=== PATIENT | male | born 1955 | race Caucasian/White ===

== ENCOUNTER 2018-10-05 08:03 | Inpatient (IN) | payer BC, SELFPAY ==
[2018-10-05] VITALS (19 sets, daily range): BP systolic 132–151; BP diastolic 63–78; PULSE 78–96; RESP 16–22; TEMP 36.1–37; O2SAT 96–99; BMI 29.0; BMI 29.3
--- NOTE | 2018-10-05 08:08 | EKG12_ITS ---
Test Reason : ABNORMAL LABS Blood Pressure : / mmHG Vent. Rate : 092 BPM Atrial Rate : 092 BPM P-R Int : 000 ms QRS Dur : 082 ms QT Int : 352 ms P-R-T Axes : 000 -35 145 degrees QTc Int : 435 ms Normal sinus rhythm Left axis deviation ST & T wave abnormality, consider anterolateral ischemia Abnormal ECG Confirmed by MIHAI HOLLIS ([id number]), script editor KLARISSA CLARK ([id number]) on 10/08/2018 11:16:06 AM Referred By: FLORESITA Confirmed By:MIHAI HOLLIS
--- NOTE | 2018-10-05 08:28 | ED.DCSUM_ITS ---
- ER Visit Summary Date of Service: 10/05/18 Chief Complaint: Abnormal labs History of Present Illness: The patient is a 63 M who presents with abnormal labs were drawn yesterday by his primary care physician. Patient was called today and told that his potassium was elevated at 6.3. Creatinine was 12.14 and BNP was elevated over 70,000. Patient has been complaining of some shortness of breath and chest congestion. Patient denies any fevers or chills. Patient does admit to a cough but denies any sputum production. Patient denies any chest pain or palpitations. Patient does admit to some nausea and vomiting. Patient also admits to some increased swelling in his lower extremities. Physical Examination: Vital signs are stable. Patient is afebrile. Patient is in no acute distress. Oral mucosa is pink and moist. Neck is supple. Trachea is midline. There is no JVD noted. Heart was regular rate and rhythm. Lungs were diminished bilaterally. There is adequate respiratory effort noted. Abdomen is soft nontender. Rectal exam showed good sphincter tone. There is brown stool. There is no tenderness or masses noted. Extremities are intact. There is 2+ edema lower extremities bilaterally. Cranial nerves II through XII are intact. There are no focal motor or sensory deficits noted. Test Results: EKG showed sinus rhythm with a rate of 92. There is some T wave inversion in V6 which is new compared to previous EKG. CBC showed anemia with a hemoglobin of 6.4. Basic metabolic profile showed an elevated BUN of 146, elevated creatinine of 11.7. Potassium was elevated at 5.9. Chloride was elevated at 114. Troponin was slightly elevated at 0.175. BNP was greater than 5000. Chest x-ray shows a left-sided effusion with atelectasis/infiltrate. Stool was sent for occult blood. Emergency Department Course and Treatment: Patient was given a DuoNeb aerosol here. Patient was given calcium gluconate, insulin, D50, and Kayexalate. Case was discussed with the hospitalist, Dr. Valdivia. She will admit the patient to her service. She requested I contact nephrology. Case was discussed with Dr. Nieto from nephrology. She will see the patient in the hospital today. Disposition: Admit to hospital Impression: Acute on chronic kidney disease This note was generated with [employer] software. It may contain incorrect words, spelling, and punctuation that were not noted in review of the chart prior to signing ED Disposition - Plan for ED Patient: Disposition: Acute Care Hospital [facility] Diagnosis: Acute on chronic kidney failure, Hyperkalemia, Anemia Referrals: Tayo Layton MD [Primary Care Provider] -
[2018-10-05] MEDS: Ipratropium/Albuterol Sulfate 3 ML AMPUL.NEB INHALATION ×3 (08:31→19:25)
[2018-10-05 08:52] LABS: Absolute Lymphocyte Count 0.92 X10^3/ul (0.83-4.51); Basophil# 0.01 X10^3/uL; Basophil% 0.1 % (0-1); Eosinophil# 0.19 X10^3/uL; Eosinophils% 2.3 % (0-5); Hematocrit 19.5 % (40-54); Hemoglobin 6.4 g/dl (13.0-16.5); Lymphocyte # 0.92 X10^3/ul (4.0); Mean Corp Hgb Conc 32.8 g/gl (32-36); Mean Corpuscular Hgb 30.2 pg (27.0-32.0); Mean Platelet Vol. 8.7 fl (6.2-12.0); Monocyte# 0.23 X10^3/uL; Monocyte% 2.7 % (0-10); Neutrophil # 7.01 X10^3/uL (2.7-7.7); Neutrophil % 83.8 % (47-70); POSITIVE COUNT NO; POSITIVE DIFFERENTIAL NO; POSITIVE MORPHOLOGY YES; Platelet Count 208 K/mm3 (150-450); RBC Distribution Width CV 18.3 % (11.6-14.6); RBC Distribution Width SD 56.8 fl (35.1-43.9); Red Blood Count 2.12 M/mm3 (4.6-6.2); White Blood Count 8.4 K/mm3 (4.4-11.0)
[2018-10-05 08:53] LABS: Differential Indicated SCAN CRITERIA MET
--- NOTE | 2018-10-05 09:15 | ED.RN ---
CRITICAL VALUES TAKEN FROM LAB. REPORTED TO PRIMARY NURSE AND
[2018-10-05 09:16] LABS: Anion Gap 12 (5-15); BNP,B-Type NATRIURETIC PEPTIDE > 5000.0 pg/mL (0-100); BUN 146 mg/dL (7-18); BUN/Creat Ratio 12.5 RATIO (10-20); Calcium,Total 6.9 mg/dL (8.5-10.1); Chloride 114 mmol/L (98-107); EST Glomerular Filtration Rate 5 mL/min (>60); Est Glom Filt Rate - Afr Amer 6 mL/min (>60); Glucose 131 mg/dL (74-106); Potassium 5.9 mmol/L (3.5-5.1); Sodium Level 142 mmol/L (136-145)
--- NOTE | 2018-10-05 09:18 | RAD_ITS ---
STUDY: X-RAY CHEST REASON FOR EXAM: Male, 63 years old. Cold like symptoms. Elevated potassium levels. TECHNIQUE: PA and lateral views of the chest. COMPARISON: None. FINDINGS: EKG electrodes are seen. Small left pleural effusion with underlying left lower lobe infiltration and/or atelectasis. Mild increased markings at the right lung base suggestive of atelectasis. Blunting of the right costophrenic angle. There is moderate cardiac enlargement. Normal mediastinum and jules. Normal visualized pulmonary arteries. There is atherosclerotic tortuosity of the aortic arch and descending thoracic aorta. There are diffuse degenerative changes of the visualized thoracic spine. Normal visualized ribs, clavicles, and shoulders. There is no demonstrated abnormality of the visualized soft tissue structures of the upper abdomen. RAD/Chest PA and Lateral IMPRESSION: Small left pleural effusion with underlying left lower lobe infiltration and/or atelectasis. Mild increased markings at the right lung base. Cardiomegaly. Electronically Signed: Jay Jya Dwyer, at 9:34 EDT , Service support ,
--- NOTE | 2018-10-05 10:41 | PCM.HP.STD ---
Problem List (1) Acute on chronic kidney failure Status: Chronic Qualifiers: Acute renal failure type: unspecified Chronic kidney disease stage: stage 5, not on chronic dialysis Qualified Code(s): N17.9 - Acute kidney failure, unspecified; N18.5 - Chronic kidney disease, stage 5 (2) Anemia Status: Acute Qualifiers: Anemia type: unspecified type Qualified Code(s): D64.9 - Anemia, unspecified (3) Acute electrocardiogram changes Status: Acute (4) Hyperkalemia Status: Acute (5) Type II diabetes mellitus Status: Chronic Qualifiers: Diabetes mellitus assisted insulin use: without assisted use Diabetes mellitus complication status: with unspecified complications Qualified Code(s): E11.8 - Type 2 diabetes mellitus with unspecified complications (6) Hyperlipidemia Status: Chronic Qualifiers: Hyperlipidemia type: unspecified Qualified Code(s): E78.5 - Hyperlipidemia, unspecified (7) Hypertension Status: Chronic Qualifiers: Hypertension type: essential hypertension Qualified Code(s): I10 - Essential (primary) hypertension History of Present Illness Date of Admission: 10/05/18 Chief Complaint: Abnormal blood work The patient is a 63 year old M with medical history of CKD stage IV, hypertension, type II DM who last followed up with nephrology will start in 2017 comes in with abnormal blood work. Patient reportedly saw his primary care doctor's nurse practitioner, blood work was taken and later patient was called to come back into the hospital because his potassium was elevated as well as his BMP. He denied any chest pain or dizziness but admits to dyspnea on exertion as well as orthopnea but denied any PND. He noticed bilateral lower extremity edema. Denied any fever or chills. Denied any recent diarrhea. Admitted to some nausea recently. Denied any use of NSAIDs or any inciting medications. In the emergency department, his temperature was 98.1F, heart rate was 89, blood pressure is 151/77, respiratory rate is 16, SPO2 is 99% on room air. Admitting blood work showed WBC count of 8.4, hemoglobin 6.4, platelet count of 208, INR 1.3, sodium 140 142, potassium 5.9, chloride 104, bicarbonate 16, BUN 146, creatinine 11.70, HbA1c was 3.5, serum 6.9, iron profile shows a mixed picture of iron deficiency anemia as well as anemia of chronic disease. Stool for occult blood was negative. BN pep was more than 5000, Chest x-ray showed small left pleural effusion with underlying left lower lobe infiltrate/atelectasis, mild increased markings in the right lung base, cardiomegaly Past Medical History Past Medical History (Chronic Problems): Chronic Problems Acute on chronic kidney failure (Chronic) Type II diabetes mellitus (Chronic) Hyperlipidemia (Chronic) Hypertension (Chronic) Allergies No Known Allergies Allergy (Verified 10/05/18 09:07) Home Medications: Ambulatory Orders Medication Instructions Recorded Atorvastatin Calcium [Lipitor] 10 mg PO QODAY 11/12/15 Carvedilol [Coreg (Beta Rosalba)] 25 mg PO BID 11/12/15 Amlodipine Besylate 10 mg PO DAILY 10/05/18 Furosemide [Lasix] 20 mg PO DAILY 10/05/18 Sodium Bicarbonate 650 mg PO BID 10/05/18 Sodium Polystyrene Sulfonate 15 gm PO DAILY 10/05/18 [Kayexalate] Surgical History: noncontributory Psychiatric History: No pertinent psych hx Lives: Spouse/ Significant Other Smoking Status: Never smoker Tobacco Use: Non-smoker Alcohol: None Drugs: None - *Family History Maternal History Items: Diabetes Paternal History Items: Hypertension, - Review of Systems Constitutional: Reports: Weakness, Fatigue. Denies: Anorexia, Chills, Fever, Weight Change Eyes: Denies: Blurred vision, Cataracts, Conjunctivae Inflammation, Pain, Redness, Vision Change HEENT: Denies: Difficulty Hearing, Difficulty Swallowing, Head Aches, Hearing Changes, Sinus Congestion, Sinus Drainage, Sore Throat Cardiovascular: Reports: Orthopnea. Denies: Chest Pain, Claudication, Palpitations, Paroxysmal Noc. Dyspnea Respiratory: Reports: Shortness of breath at rest, Shortness of breath upon exertion. Denies: Cough, Hemoptysis, Sputum production Gastrointestinal: Denies: Abdominal Pain, Hematemesis, Hematochezia, Nausea, Vomiting Genitourinary: Denies: Dysuria, Frequency, Incontinence Musculoskeletal: Denies: Joint Pain, Joint stiffness, Joint swelling, Joint Tenderness Skin: Denies: Rash, Wounds Neurological: Denies: Difficulty swallowing, Focal weakness, Numbness, Tingling Psychiatric: Denies: Anxiety, Depression, Homicidal Ideations, Suicidal Ideations Hematologic/ Lymphatic: Denies: Easy Bruising, Easy Bleeding VTE Information - Inpt Only VTE Present on Admission: No VTE Pharm Prophylaxis ordered?: Yes Patient Problems: Active and Suspected Problems Anemia (Acute) Hyperkalemia (Acute) - Physical Exam General: Alert, Oriented x3, Cooperative, No apparent distress HEENT: Atraumatic, PERRLA, EOMI, Normocephalic Oral: Moist Mucosa Neck: Supple Lungs: Normal air movement, Diminished, - - basal crackles Cardiovascular: Regular rate, Regular Rhythm, Normal S1, Normal S2 Abdomen: Bowel Sounds Present, Soft, Non Tender, Non-Distended, No Hepato-splenomegaly Extremities: Edema - bilateral pedal +4 Skin: No rashes Musculoskeletal: No Tenderness to Palpation of Joints or Extremities Lymphatic: No Cervical, Supraclavicular, or Inguinal Adenopathy Neurological: Cranial nerves II-XII grossly intact, Neuro grossly intact Psych/Mental Status: Normal Affect, Appropriate Vital Signs Temp Pulse Resp BP Pulse Ox 98.1 F 89 22 H 151/77 H 99 10/05/18 08:04 10/05/18 08:31 10/05/18 08:31 10/05/18 08:04 10/05/18 08:04 Oxygen Delivery Method Room Air Weight: 83.915 kg Body Mass Index (BMI) 29.0 Laboratory Tests Past 24 Hrs 10/05/18 10/05/18 10/05/18 08:30 08:30 08:30 WBC 8.4 RBC 2.12 L Hgb 6.4 L Hct 19.5 L MCV 92.0 MCH 30.2 MCHC 32.8 RDW 18.3 H RDW Differential 56.8 H Plt Count 208 MPV 8.7 Immature Gran % (Auto) 0.100 Neut % (Auto) 83.8 H Lymph % (Auto) 11.0 L Rankin % (Auto) 2.7 Eos % (Auto) 2.3 Baso % (Auto) 0.1 Absolute Neuts (auto) 7.0 Absolute Lymphs (auto) 0.92 Total Counted Not Reportable Sodium 142 Potassium 5.9 H Chloride 114 H Carbon Dioxide 16.0 L Anion Gap 12 BUN 146 H* Creatinine 11.70 H* Estim Creat Clear Calc 6.20 Est GFR (MDRD) Af Amer 6 L Est GFR (MDRD) Non-Af 5 L BUN/Creatinine Ratio 12.5 Glucose 131 H Calcium 6.9 L Troponin I 0.175 H B-Natriuretic Peptide > 5000.0 H Assessment/Plan All Active Problems Anemia (Acute) Acute electrocardiogram changes (Acute) Hyperkalemia (Acute) Acute renal failure (Acute) 63 year old M with medical history of CKD stage IV, hypertension, type II DM who last followed up with nephrology will start in 2017 comes in with abnormal blood work 1. EDENILSON, ESRD now, recent stage 4 CKD, Cr in 2017 is 4.24, now with BUN/Cr 146/11.70 History of hypertension and type II DM Plan: Admit to PCU, nephrology consult, possible dialysis 2. Hyperkalemia secondary to EDENILSON, will repeat 3. Acute fluid overload secondary to EDENILSON, BNPep 5000, nephrology consulted Fluid removal planned in dialysis 4. Anemia, acute on chronic, deficiency mixed with anemia of chronic kidney disease, hemoglobin is 6.4 Will need blood transfusion, preferably during dialysis. 5. Non-gap metabolic acidosis secondary to EDENILSON, on sodium bicarbonate 6. Hypertension, controlled, on amlodipine, carvedilol, will continue to monitor 7. Type II DM, A1c less than 3.5, not on medications, will continue with Accu-Cheks with insulin sliding scale 8. DVT PPx- Heparin SC Code Visit Inpatient E&M: 44329 Init Hosp L3
[2018-10-05] MEDS: Calcium Gluconate 1 GM/10 ML Vial IV (11:05)
[2018-10-05] MEDS: Dextrose 50%-Water 25 GM/50 ML DISP.SYRIN IV (11:05)
--- NOTE | 2018-10-05 12:11 | PCM.CONS.R ---
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 His creatinine has been in the 4 range in 2017. No blood work was done as an outpatient at [facility] up until October 04. His creatinine was at 12 with BUN of 142 potassium 6.3. He complains of nausea, vomiting, anorexia for the past couple of months. Denied any cough, shortness of breath, chest pain. He has mild lower extremity edema. He denied any change in his urine output or urine stream. He denied any urinary frequency or thirst. He states that his blood sugars have been stable at home. He was prescribed calcium gluconate, Kayexalate for his hyperkalemia. We had discussed in the past about preparing for hemodialysis. However he had failed to follow-up with me in the office with last office visit in 2015. We discussed initiating hemodialysis with current admission. Patient agreed. - Allergies Allergies: Allergies No Known Allergies Allergy (Verified 10/05/18 09:07) - Past Medical History Past Medical History (Chronic Problems): Chronic Problems Acute on chronic kidney failure (Chronic) Type II diabetes mellitus (Chronic) Hyperlipidemia (Chronic) Hypertension (Chronic) - Past Surgical History Surgical History: noncontributory - Social History Marital Status: Smoking Status: Never smoker - Family History Maternal History Items: Diabetes Paternal History Items: Hypertension, - Review of Systems Constitutional: Reports: Anorexia, Weakness. Denies: Chills, Fever Eyes: Denies: Vision Change HEENT: Denies: Head Aches Cardiovascular: Reports: Edema. Denies: Chest Pain, Syncope Respiratory: Denies: Cough, Shortness of Breath Gastrointestinal: Reports: Nausea, Vomiting. Denies: Abdominal Pain, Diarrhea Genitourinary: Reports: - - no change in urine volume. Denies: Dysuria, Hesitancy, Incontinence, Retention, Urgency Musculoskeletal: Reports: Joint swelling Skin: Denies: Rash Neurological: Reports: Tremor. Denies: Balance problems, Seizures Psychiatric: Denies: Anxiety, Depression Hematologic/ Lymphatic: Denies: Hx of blood clot Patient Problems: Active and Suspected Problems Anemia (Acute) Hyperkalemia (Acute) - Physical Exam General: Alert, Oriented x3 Lungs: Rhonchi - left base Cardiovascular: Murmur Abdomen: Bowel Sounds Present, Soft, Non Tender, Non-Distended Extremities: Edema - mild Musculoskeletal: No Muscle Wasting Neurological: Cranial nerves II-XII grossly intact, - - mld tremor, asterixis Psych/Mental Status: Normal Affect, Appropriate, Alert and oriented to time, place, person, mood and affect Vital Signs Temp Pulse Resp BP Pulse Ox 98.3 F 90 18 142/70 H 98 10/05/18 11:42 10/05/18 11:42 10/05/18 11:42 10/05/18 11:42 10/05/18 11:42 Oxygen Delivery Method Room Air Weight: 85 kg Body Mass Index (BMI) 29.3 Microbiology Past 72 Hours 10/05/18 10:35 Stool Occult Blood (JOSE) - Final Stool Laboratory Tests Past 24 Hrs 10/05/18 10/05/18 10/05/18 08:30 08:30 08:30 WBC 8.4 RBC 2.12 L Hgb 6.4 L Hct 19.5 L MCV 92.0 MCH 30.2 MCHC 32.8 RDW 18.3 H RDW Differential 56.8 H Plt Count 208 MPV 8.7 Immature Gran % (Auto) 0.100 Neut % (Auto) 83.8 H Lymph % (Auto) 11.0 L Hidalgo % (Auto) 2.7 Eos % (Auto) 2.3 Baso % (Auto) 0.1 Absolute Neuts (auto) 7.0 Absolute Lymphs (auto) 0.92 Total Counted Not Reportable Sodium 142 Potassium 5.9 H Chloride 114 H Carbon Dioxide 16.0 L Anion Gap 12 BUN 146 H* Creatinine 11.70 H* Estim Creat Clear Calc 6.20 Est GFR (MDRD) Af Amer 6 L Est GFR (MDRD) Non-Af 5 L BUN/Creatinine Ratio 12.5 Glucose 131 H Calcium 6.9 L Troponin I 0.175 H B-Natriuretic Peptide > 5000.0 H Clinical Impression(s) from Imaging Studies Chest X-Ray 10/05/18 09:18 IMPRESSION: Small left pleural effusion with underlying left lower lobe infiltration and/or atelectasis. Mild increased markings at the right lung base. Cardiomegaly. Electronically Signed: Jay Jay Dwyer, at 9:34 EDT , Service support , Assessment/Plan All Active Problems Anemia (Acute) Acute electrocardiogram changes (Acute) Hyperkalemia (Acute) Acute renal failure (Acute) 1. ESRD due to diabetic nephropathy. Last seen in hospital Jun 2017, seen in the office in 2015 prior to that. Creatinine 4 range in 2017 now with BUN of 142 creatinine 12.14. Currently at end-stage renal disease with uremic symptoms. We will initiate hemodialysis with a tunneled dialysis catheter. Consult Dr. Carrasquillo for access placement. Arrange outpatient hemodialysis prior to discharge. 2. Hyperkalemia treated medically. 3. Metabolic acidosis correct with dialysis. 4. Anemia of chronic disease check iron studies. Blood transfusion as needed 5. Hypocalcemia will need to check intact PTH and vitamin D level. 6. Diabetes mellitus type 2 primary service management 7. Hypertension with stable blood pressure 8. History of medical noncompliance with follow-up appointments
--- NOTE | 2018-10-05 12:14 | CON.PCM_ITS ---
Consultation - Renal 10/05/18 PCP/ Referring MD: Requesting physician: Cherry Valdivia Primary care physician: Tayo Layton MD Reason for Consultation:: renal failure - History of Present Illness History of Present Illness: The patient is a 63 year old M with history of CKD stage IV due to diabetic nephropathy was last seen in June 2017 and [facility] for CKD and hyperkalemia. His creatinine has been in the 4 range in 2017. No blood work was done as an outpatient at [facility] up until October 04. His creatinine was at 12 with BUN of 142 potassium 6.3. He complains of nausea, vomiting, anorexia for the past couple of months. Denied any cough, shortness of breath, chest pain. He has mild lower extremity edema. He denied any change in his urine output or urine stream. He denied any urinary frequency or thirst. He states that his blood sugars have been stable at home. He was prescribed calcium gluconate, Kayexalate for his hyperkalemia. We had discussed in the past about preparing for hemodialysis. However he had failed to follow-up with me in the office with last office visit in 2015. We discussed initiating hemodialysis with current admission. Patient agreed. - Allergies Allergies: Allergies No Known Allergies Allergy (Verified 10/05/18 09:07) - Past Medical History Past Medical History (Chronic Problems): Chronic Problems Acute on chronic kidney failure (Chronic) Type II diabetes mellitus (Chronic) Hyperlipidemia (Chronic) Hypertension (Chronic) - Past Surgical History Surgical History: noncontributory - Social History Marital Status: Smoking Status: Never smoker - Family History Maternal History Items: Diabetes Paternal History Items: Hypertension, - Review of Systems Constitutional: Reports: Anorexia, Weakness. Denies: Chills, Fever Eyes: Denies: Vision Change HEENT: Denies: Head Aches Cardiovascular: Reports: Edema. Denies: Chest Pain, Syncope Respiratory: Denies: Cough, Shortness of Breath Gastrointestinal: Reports: Nausea, Vomiting. Denies: Abdominal Pain, Diarrhea Genitourinary: Reports: - - no change in urine volume. Denies: Dysuria, Hesitancy, Incontinence, Retention, Urgency Musculoskeletal: Reports: Joint swelling Skin: Denies: Rash Neurological: Reports: Tremor. Denies: Balance problems, Seizures Psychiatric: Denies: Anxiety, Depression Hematologic/ Lymphatic: Denies: Hx of blood clot Patient Problems: Active and Suspected Problems Anemia (Acute) Hyperkalemia (Acute) - Physical Exam General: Alert, Oriented x3 Lungs: Rhonchi - left base Cardiovascular: Murmur Abdomen: Bowel Sounds Present, Soft, Non Tender, Non-Distended Extremities: Edema - mild Musculoskeletal: No Muscle Wasting Neurological: Cranial nerves II-XII grossly intact, - - mld tremor, asterixis Psych/Mental Status: Normal Affect, Appropriate, Alert and oriented to time, place, person, mood and affect Vital Signs Temp Pulse Resp BP Pulse Ox 98.3 F 90 18 142/70 H 98 10/05/18 11:42 10/05/18 11:42 10/05/18 11:42 10/05/18 11:42 10/05/18 11:42 Oxygen Delivery Method Room Air Weight: 85 kg Body Mass Index (BMI) 29.3 Microbiology Past 72 Hours 10/05/18 10:35 Stool Occult Blood (JOSE) - Final Stool Laboratory Tests Past 24 Hrs 10/05/18 10/05/18 10/05/18 08:30 08:30 08:30 WBC 8.4 RBC 2.12 L Hgb 6.4 L Hct 19.5 L MCV 92.0 MCH 30.2 MCHC 32.8 RDW 18.3 H RDW Differential 56.8 H Plt Count 208 MPV 8.7 Immature Gran % (Auto) 0.100 Neut % (Auto) 83.8 H Lymph % (Auto) 11.0 L Spencer % (Auto) 2.7 Eos % (Auto) 2.3 Baso % (Auto) 0.1 Absolute Neuts (auto) 7.0 Absolute Lymphs (auto) 0.92 Total Counted Not Reportable Sodium 142 Potassium 5.9 H Chloride 114 H Carbon Dioxide 16.0 L Anion Gap 12 BUN 146 H* Creatinine 11.70 H* Estim Creat Clear Calc 6.20 Est GFR (MDRD) Af Amer 6 L Est GFR (MDRD) Non-Af 5 L BUN/Creatinine Ratio 12.5 Glucose 131 H Calcium 6.9 L Troponin I 0.175 H B-Natriuretic Peptide > 5000.0 H Clinical Impression(s) from Imaging Studies Chest X-Ray 10/05/18 09:18 IMPRESSION: Small left pleural effusion with underlying left lower lobe infiltration and/or atelectasis. Mild increased markings at the right lung base. Cardiomegaly. Electronically Signed: Jay Jay Dwyer, at 9:34 EDT , Service support , Assessment/Plan All Active Problems Anemia (Acute) Acute electrocardiogram changes (Acute) Hyperkalemia (Acute) Acute renal failure (Acute) 1. ESRD due to diabetic nephropathy. Last seen in hospital Jun 2017, seen in the office in 2015 prior to that. Creatinine 4 range in 2017 now with BUN of 142 creatinine 12.14. Currently at end-stage renal disease with uremic symptoms. We will initiate hemodialysis with a tunneled dialysis catheter. Consult Dr. Carrasquillo for access placement. Arrange outpatient hemodialysis prior to discharge. 2. Hyperkalemia treated medically. 3. Metabolic acidosis correct with dialysis. 4. Anemia of chronic disease check iron studies. Blood transfusion as needed 5. Hypocalcemia will need to check intact PTH and vitamin D level. 6. Diabetes mellitus type 2 primary service management 7. Hypertension with stable blood pressure 8. History of medical noncompliance with follow-up appointments
[2018-10-05] MEDS: Sodium Polystyrene Sulfonate 15 GM/60 ML UDC 30 GM PO (12:19)
--- NOTE | 2018-10-05 12:25 | US_ITS ---
STUDY: RENAL ULTRASOUND - COMPLETE REASON FOR EXAM: Male, 63 years old. Acute renal failure. Hyperkalemia. TECHNIQUE: Ultrasound evaluation of the kidneys was performed with real-time and static shoemaker-scale imaging. COMPARISON: None. FINDINGS: RIGHT KIDNEY: Normal location of the right kidney, which is normal in size. The right kidney measures 11.1 cm x 4.1 cm x 4.7 cm. There is a normal cortex of the right kidney. The renal cortex measures 1.5 cm. There is no right renal mass or cyst. There are no right renal calculi. There is no right hydronephrosis. DISTAL RIGHT URETER: There is non-visualization of the distal right ureter. There is no demonstrated right ureterovesical junction calculus. There is a visualized right ureteral jet. LEFT KIDNEY: Normal location of the left kidney, which is normal in size. The left kidney measures 10.1 cm x 4.7 cm x 4.9 cm. There is a normal cortex of the left kidney. The renal cortex measures 1.4 cm. There is no left renal mass or cyst. I suspect a 4 mm intrarenal calculus. There is no left hydronephrosis. DISTAL LEFT URETER: There is non-visualization of the distal left ureter. There is no demonstrated left ureterovesical junction calculus. There is a visualized left ureteral jet. Small amount of fluid is seen adjacent to the liver and spleen. BLADDER: The distended urinary bladder has a volume of 144 ml. There is a normal wall thickness of the distended urinary bladder. There is no demonstrated mass within the urinary bladder. There are no demonstrated bladder calculi. US/Kidney and Bladder IMPRESSION: Findings suggestive a 4 mm focus in the left kidney. Electronically Signed: Jay Jay Dwyer, at 14:06 EDT , Service support ,
[2018-10-05 12:33] LABS: International Normalized Ratio 1.3; Prothrombin Time (Protime)PT. 16.1 SECONDS (11.7-14.9)
[2018-10-05 12:49] LABS: Iron 17 ug/dL (65-175); Iron Binding Capacity,Total 223 ug/dL (250-450); PERCENT IRON SATURATION 7.6 % (15.0-55.0)
--- NOTE | 2018-10-05 13:30 | PCM.CONS.GEN ---
Problem List (1) Acute on chronic kidney failure Status: Chronic Reason for Consult Date of Consultation: 10/05/18 Reason for Consultation: Acute on chronic renal failure. In need of chest catheters. History of Present Illness: The patient is a 63 year old M who presents to the ED with abnormal labs, lethargy, and weakness. Patient was evaluated by his PCP yesterday for these symptoms. Labs were ordered noting a potassium of 6.3, Hgb of 6.2, creatinine 12.14, BUN 142. Patient was notified to proceed to the ED. Patient notes history of diabetes. He is non-complaint. Patient denies previous surgical history. He is on oral medication for diabetes. He stated he last saw Dr. Nieto in 2017. Patient notes he has had kidney issues for a while. Patient denies previous myocardial infarction, strokes. Patient denies previous chest catheter placement. Past Medical History Past Medical History (Chronic Problems): Chronic Problems Acute on chronic kidney failure (Chronic) Type II diabetes mellitus (Chronic) Hyperlipidemia (Chronic) Hypertension (Chronic) Allergies No Known Allergies Allergy (Verified 10/05/18 09:07) Home Medications: Ambulatory Orders Medication Instructions Recorded Atorvastatin Calcium [Lipitor] 10 mg PO QODAY 11/12/15 Carvedilol [Coreg (Beta Rosalba)] 25 mg PO BID 11/12/15 Amlodipine Besylate 10 mg PO DAILY 10/05/18 Furosemide [Lasix] 20 mg PO DAILY 10/05/18 Sodium Bicarbonate 650 mg PO BID 10/05/18 Sodium Polystyrene Sulfonate 15 gm PO DAILY 10/05/18 [Kayexalate] Surgical History: no surgical history, noncontributory Lives: Spouse/ Significant Other Smoking Status: Never smoker Alcohol: None - *Family History Maternal History Items: Diabetes Paternal History Items: Heart Disease, Hypertension Review of Systems Constitutional: Reports: Anorexia, Malaise, Weakness, Fatigue HEENT: Denies: Head Aches, Sinus Congestion, Sinus Drainage Cardiovascular: Reports: Edema - bilateral lower extremities. Denies: Chest Pain, Palpitations Respiratory: Reports: Shortness of breath at rest Gastrointestinal: Denies: Abdominal Pain, Nausea, Vomiting Genitourinary: Reports: Hesitancy, Retention Musculoskeletal: Denies: Joint Pain, Joint Tenderness Skin: Reports: Dryness Neurological: Denies: Numbness, Tingling, Focal weakness Psychiatric: Denies: Anxiety, Depression, Homicidal Ideations, Suicidal Ideations Hematologic/ Lymphatic: Reports: Anemia. Denies: Hx of blood clot, Hx of blood transfusion Patient Problems: Active and Suspected Problems Anemia (Acute) Hyperkalemia (Acute) - Physical Exam General: Alert, Oriented x3, Cooperative HEENT: Atraumatic, PERRLA, EOMI, Normocephalic Neck: Supple, No JVD, Negative Carotid Bruits Lungs: Clear to auscultation, Normal air movement Cardiovascular: Regular rate, No murmurs Abdomen: Bowel Sounds Present, Soft, Non Tender Extremities: Edema - bilateral lower extremities- 2+ Skin: No rashes, No breakdown Musculoskeletal: No Tenderness to Palpation of Joints or Extremities Neurological: Neuro grossly intact Psych/Mental Status: Normal Affect, Appropriate Vital Signs Temp Pulse Resp BP Pulse Ox 98.3 F 90 18 142/70 H 98 10/05/18 11:42 10/05/18 11:42 10/05/18 11:42 10/05/18 11:42 10/05/18 11:42 Oxygen Delivery Method Room Air Weight: 187 lb 6.287 oz Body Mass Index (BMI) 29.3 Microbiology Past 72 Hours 10/05/18 10:35 Stool Occult Blood (JOSE) - Final Stool Laboratory Tests Past 24 Hrs 10/05/18 10/05/18 10/05/18 08:30 08:30 08:30 WBC 8.4 RBC 2.12 L Hgb 6.4 L Hct 19.5 L MCV 92.0 MCH 30.2 MCHC 32.8 RDW 18.3 H RDW Differential 56.8 H Plt Count 208 MPV 8.7 Immature Gran % (Auto) 0.100 Neut % (Auto) 83.8 H Lymph % (Auto) 11.0 L [place] % (Auto) 2.7 Eos % (Auto) 2.3 Baso % (Auto) 0.1 Absolute Neuts (auto) 7.0 Absolute Lymphs (auto) 0.92 Total Counted Not Reportable PT INR Sodium 142 Potassium 5.9 H Chloride 114 H Carbon Dioxide 16.0 L Anion Gap 12 BUN 146 H* Creatinine 11.70 H* Estim Creat Clear Calc 6.20 Est GFR (MDRD) Af Amer 6 L Est GFR (MDRD) Non-Af 5 L BUN/Creatinine Ratio 12.5 Glucose 131 H Hemoglobin A1c Calcium 6.9 L Iron TIBC Iron Saturation Troponin I 0.175 H B-Natriuretic Peptide > 5000.0 H Vitamin D 25-Hydroxy PTH Intact Hep Bs Antigen Blood Type Antibody Screen Crossmatch 10/05/18 10/05/18 10/05/18 08:30 08:30 08:30 WBC RBC Hgb Hct MCV MCH MCHC RDW RDW Differential Plt Count MPV Immature Gran % (Auto) Neut % (Auto) Lymph % (Auto) [place] % (Auto) Eos % (Auto) Baso % (Auto) Absolute Neuts (auto) Absolute Lymphs (auto) Total Counted PT 16.1 H INR 1.3 Sodium Potassium Chloride Carbon Dioxide Anion Gap BUN Creatinine Estim Creat Clear Calc Est GFR (MDRD) Af Amer Est GFR (MDRD) Non-Af BUN/Creatinine Ratio Glucose Hemoglobin A1c Calcium Iron 17 L TIBC 223 L Iron Saturation 7.6 L Troponin I B-Natriuretic Peptide Vitamin D 25-Hydroxy PTH Intact 1443.0 H Hep Bs Antigen Blood Type Antibody Screen Crossmatch 10/05/18 10/05/18 10/05/18 12:45 12:45 12:45 WBC RBC Hgb Hct MCV MCH MCHC RDW RDW Differential Plt Count MPV Immature Gran % (Auto) Neut % (Auto) Lymph % (Auto) [place] % (Auto) Eos % (Auto) Baso % (Auto) Absolute Neuts (auto) Absolute Lymphs (auto) Total Counted PT INR Sodium Potassium Chloride Carbon Dioxide Anion Gap BUN Creatinine Estim Creat Clear Calc Est GFR (MDRD) Af Amer Est GFR (MDRD) Non-Af BUN/Creatinine Ratio Glucose Hemoglobin A1c Pending Calcium Iron TIBC Iron Saturation Troponin I 0.163 H B-Natriuretic Peptide Vitamin D 25-Hydroxy PTH Intact Hep Bs Antigen Blood Type Pending Antibody Screen Pending Crossmatch See Detail 10/05/18 10/05/18 12:45 12:45 WBC RBC Hgb Hct MCV MCH MCHC RDW RDW Differential Plt Count MPV Immature Gran % (Auto) Neut % (Auto) Lymph % (Auto) [place] % (Auto) Eos % (Auto) Baso % (Auto) Absolute Neuts (auto) Absolute Lymphs (auto) Total Counted PT INR Sodium Potassium Chloride Carbon Dioxide Anion Gap BUN Creatinine Estim Creat Clear Calc Est GFR (MDRD) Af Amer Est GFR (MDRD) Non-Af BUN/Creatinine Ratio Glucose Hemoglobin A1c Calcium Iron TIBC Iron Saturation Troponin I B-Natriuretic Peptide Vitamin D 25-Hydroxy Pending PTH Intact Hep Bs Antigen Pending Blood Type Antibody Screen Crossmatch Assessment/Plan All Active Problems Anemia (Acute) Acute electrocardiogram changes (Acute) Hyperkalemia (Acute) Acute renal failure (Acute) I have been consulted in conjunction with Dr. Carrasquillo Impression: Acute on chronic renal failure. In need of tunneled dialysis catheters. Plan: Patient was discussed with Dr. Carrasquillo. Dr. Carrasquillo will plan to perform a right chest tunneled dialysis catheters. Procedure details, risks and benefits have been explained to the patient. Patient has had the opportunity to ask and have questions answered. Patient desires to proceed with the proposed procedure. Procedure will be scheduled for tomorrow. NPO at midnight. Will need to correct potassium and Hgb prior to surgery tomorrow afternoon. Thank you for allowing us to participate in this patient's care. Code Visit Office Visits / Consults: [id number] IP Consult L3
[2018-10-05 13:41] LABS: Hemoglobin A1c < 3.5 % (4.2-6.3)
[2018-10-05 13:47] LABS: Vitamin D,25 Hydroxy 24.2 ng/mL (29.95-100.01)
--- NOTE | 2018-10-05 14:55 | EKG12_ITS ---
Test Reason : AM Blood Pressure : / mmHG Vent. Rate : 080 BPM Atrial Rate : 080 BPM P-R Int : 172 ms QRS Dur : 080 ms QT Int : 416 ms P-R-T Axes : 043 -10 200 degrees QTc Int : 479 ms Normal sinus rhythm [address] & T wave abnormality, consider inferior ischemia ST & T wave abnormality, consider anterolateral ischemia Prolonged QT Confirmed by YUE CISNEROS, RENETTA ([id number]), research editor KLARISSA CLARK ([id number]) on 10/11/2018 1:19:30 PM Referred By: HUMZA Confirmed By:RENETTA TURNER MD
[2018-10-05 15:42] LABS: Potassium 5.7 mmol/L (3.5-5.1)
[2018-10-05 17:30] LABS: Bedside Glucose 140 mg/dL (70-110)
[2018-10-05] MEDS: Sodium Polystyrene Sulfonate 15 GM/60 ML UDC PO (17:36)
--- NOTE | 2018-10-05 19:00 | NURSING ---
pt care and family medicine physician by [facility], done under the supervision of this RN.
[2018-10-05] MEDS: Furosemide 40 MG/4 ML Vial IV (20:15)
[2018-10-05] MEDS: 0.9% NaCl Peripheral Flush Adult/Peds IV ×2 (20:16→20:17)
[2018-10-05] MEDS: Carvedilol 25 MG Tablet PO (22:40)
[2018-10-05] MEDS: Sodium Bicarbonate 650 MG Tablet PO (22:40)
[2018-10-05 22:55] LABS: Bedside Glucose 120 mg/dL (70-110)
[2018-10-06] VITALS (24 sets, daily range): BP systolic 99–159; BP diastolic 54–76; PULSE 67–90; RESP 16–20; TEMP 36.4–36.9; O2SAT 94–99; BMI 29.3
[2018-10-06] MEDS: Furosemide 40 MG/4 ML Vial IV (00:19)
[2018-10-06] MEDS: 0.9% NaCl Peripheral Flush Adult/Peds IV ×2 (00:19→23:05)
[2018-10-06 05:37] LABS: Absolute Neutrophil Count 5.6 X10^3/uL (2.0-7.7); Basophil# 0.01 X10^3/uL; Basophil% 0.2 % (0-1); Eosinophil# 0.09 X10^3/uL; Eosinophils% 1.4 % (0-5); Hematocrit 23.2 % (40-54); Hemoglobin 7.7 g/dl (13.0-16.5); Lymphocyte % 4.5 % (19-41); Mean Corp Hgb Conc 33.2 g/gl (32-36); Mean Corpuscular Hgb 29.5 pg (27.0-32.0); Mean Corpuscular Volume 88.9 fL (80-94); Monocyte# 0.63 X10^3/uL; Monocyte% 9.5 % (0-10); Neutrophil # 5.57 X10^3/uL (2.7-7.7); Neutrophil % 84.2 % (47-70); Platelet Count 192 K/mm3 (150-450); RBC Distribution Width CV 17.3 % (11.6-14.6); Red Blood Count 2.61 M/mm3 (4.6-6.2); White Blood Count 6.6 K/mm3 (4.4-11.0)
[2018-10-06 05:38] LABS: Differential Indicated SCAN CRITERIA MET; POSITIVE COUNT NO; POSITIVE DIFFERENTIAL YES; POSITIVE MORPHOLOGY NO
[2018-10-06 05:40] LABS: International Normalized Ratio 1.3; Prothrombin Time (Protime)PT. 16.4 SECONDS (11.7-14.9)
[2018-10-06 05:41] LABS: Partial Thromboplast Time 33.2 Seconds (24.1-36.2)
--- NOTE | 2018-10-06 05:55 | EKG12_ITS ---
Test Reason : HIGH POTASSIUM Blood Pressure : / mmHG Vent. Rate : 087 BPM Atrial Rate : 087 BPM P-R Int : 156 ms QRS Dur : 084 ms QT Int : 398 ms P-R-T Axes : 044 -19 161 degrees QTc Int : 478 ms Normal sinus rhythm T wave abnormality, consider lateral ischemia Prolonged QT Abnormal ECG When compared with ECG of 03-JUN-2017 22:31, Nonspecific T wave abnormality now evident in Inferior leads T wave inversion now evident in Anterolateral leads Confirmed by YUE CISNEROS, RENETTA ([id number]), visual effects editor LKARISSA CLARK ([id number]) on 10/11/2018 1:22:14 PM Referred By: GE Confirmed By:RENETTA TURNER MD
[2018-10-06 06:02] LABS: Albumin, Serum 2.5 g/dL (3.2-5.0); BUN 145 mg/dL (7-18); BUN/Creat Ratio 12.6 RATIO (10-20); Calcium,Total 6.9 mg/dL (8.5-10.1); Chloride 112 mmol/L (98-107); EST Glomerular Filtration Rate 5 mL/min (>60); Est Glom Filt Rate - Afr Amer 6 mL/min (>60); Estimated Creatinine Clearance 6.31 ml/min; Glucose 99 mg/dL (74-106); Phosphorus 9.3 mg/dL (2.5-4.9); Potassium 5.6 mmol/L (3.5-5.1); Sodium Level 141 mmol/L (136-145)
[2018-10-06 07:10] LABS: Bedside Glucose 97 mg/dL (70-110)
[2018-10-06] MEDS: Ipratropium/Albuterol Sulfate 3 ML AMPUL.NEB INHALATION ×3 (07:36→19:47)
[2018-10-06] MEDS: Sodium Bicarbonate 650 MG Tablet PO (09:35)
[2018-10-06] MEDS: amLODIPine 10 MG Tablet PO (09:35)
[2018-10-06] MEDS: Carvedilol 25 MG Tablet PO ×2 (09:36→22:55)
--- NOTE | 2018-10-06 09:47 | CASEMGMT ---
Per physician patient will be a new dialysis. Patient is listed as self pay. DON called [facility] insurance clerk and she said that End Stage patient's can sign up for Medicare, but it does not take effect for 3 months unless he does home dialysis then it takes place right away. Therefore if patient signs up for Medicare this month it will not be active until January. DON and UMER CM will work on dialysis for patient. Es RIOS MSW
--- NOTE | 2018-10-06 09:51 | CASEMGMT ---
Addendum entered by Cara Izaguirre 10/06/18 15:26: This RN CM to room and is not here yet at this time. This RN CM attempted to reach via phone again at this time without success and still unable to leave message. This RN CM informed pt's nurse, Svetlana, of need for insurance information at this time to start dialysis referral and that this RN CM needs to speak with regarding insurance information, voices understanding and states she will try to get copy of card. Salvatore RN CM Original Note: Addendum entered by Cara Izaguirre 10/06/18 14:04: This RN CM again tried to reach without success at this time, voicemail box is still full at this time. Salvatore OWUSU CM Original Note: Addendum entered by Cara Izaguirre 10/06/18 11:22: This RN CM tried to reach pt's again in regards to insurance info at this time and there was no answer. Salvatore RN CM Original Note: RN CM assessment: Face to Face with patient for initial transition planning/care coordination assessment. RN CM introduced self and role at [facility], pt voices understanding and consents to assessment at this time. Pt is sitting up in bed in no distress at this time. Pt is A/Ox4 at this time and answers all questions appropriately at this time. Care providers, pharmacy, and demographics verified at this time. PCP: Calin Specialists: ilya Nieto Pharmacy: [facility] Insurance: [place], but registration's note states that this was terminated and pt was not aware. Per pt, insurance is through his and he states ok to place call to her at this time as she will not be in until 1500. This RN CM placed call to but she did not answer at this time and her mailbox is full so this RN CM is unable to leave a message at this time. This RN CM will attempt to call again later. Prescription Benefit: None Living Will/HPOA: Pt states that he does not have LW/HPOA and declines info at this time. LNOK: Jayshree Goodson, Living Arrangements: Pt states lives with in 1 story home and states no concerns at home at this time. Pt states is independent with ADL's. Transportation: Pt states drives self and states no transportation concerns at this time. DME/HHC: Pt states no current DME or need for any at this time. Pt states no hx of HHC or SNF in the past. Per Dr. Nieto, pt will need set up with OP dialysis. Pt is agreeable to Meghann Holly, Dr. Nieto's preference, and states would like a M, W, F schedule. This RN CM will fax referral once insurance info clarified with . Pt states no concerns with going home at time of discharge. 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 Pt states does not smoke or drink ETOH. Pt states no further concerns/needs at this time. CM to follow for dialysis referral and for any further discharge planning/needs. Advised pt to ask for CM if any further questions/concerns/needs arise, voices understanding. Plan: Home w/ OP dialysis. SStlara OWUSU CM
--- NOTE | 2018-10-06 10:16 | PCM.PN.REN ---
Patient Problems: Active and Suspected Problems Anemia (Acute) Hyperkalemia (Acute) Subjective: nausea this am, no shortness of breath, edema improved. Hgb 7.7g after 2u prbc. Iron stores low. Occult blood negative x1 - Physical Exam General: Alert, Oriented x3, Cooperative, No apparent distress Lungs: Clear to auscultation Cardiovascular: Regular rate, Murmur Abdomen: Bowel Sounds Present, Soft, Non Tender, Non-Distended Extremities: Edema - mild edema Skin: No rashes Musculoskeletal: No Muscle Wasting Neurological: Cranial nerves II-XII grossly intact Psych/Mental Status: Normal Affect, Alert and oriented to time, place, person, mood and affect Vital Signs Temp Pulse Resp BP Pulse Ox 98.4 F 88 20 H 159/76 H 96 10/06/18 04:34 10/06/18 07:36 10/06/18 07:36 10/06/18 04:34 10/06/18 04:34 Oxygen Delivery Method Room Air Weight: 86.2 kg Body Mass Index (BMI) 29.3 Intake and Output for Last 24 Hours 10/04/18 10/05/18 10/06/18 23:59 23:59 23:59 Intake Total 1020 / 1020 843 / 843 Balance 1020 / 1020 843 / 843 Microbiology Past 72 Hours 10/05/18 10:35 Stool Occult Blood (JOSE) - Final Stool Laboratory Tests Past 24 Hrs 10/05/18 10/05/18 10/05/18 08:30 08:30 08:30 WBC RBC Hgb Hct MCV MCH MCHC RDW RDW Differential Plt Count MPV Immature Gran % (Auto) Neut % (Auto) Lymph % (Auto) [place] % (Auto) Eos % (Auto) Baso % (Auto) Absolute Neuts (auto) Absolute Lymphs (auto) Total Counted Differential Comment PT 16.1 H INR 1.3 APTT Sodium Potassium Chloride Carbon Dioxide BUN Creatinine Estim Creat Clear Calc Est GFR (MDRD) Af Amer Est GFR (MDRD) Non-Af BUN/Creatinine Ratio Glucose Hemoglobin A1c Calcium Phosphorus Iron 17 L TIBC 223 L Iron Saturation 7.6 L Troponin I Albumin Vitamin D 25-Hydroxy PTH Intact 1443.0 H Hep Bs Antigen Blood Type Antibody Screen Crossmatch 10/05/18 10/05/18 10/05/18 12:45 12:45 12:45 WBC RBC Hgb Hct MCV MCH MCHC RDW RDW Differential Plt Count MPV Immature Gran % (Auto) Neut % (Auto) Lymph % (Auto) [place] % (Auto) Eos % (Auto) Baso % (Auto) Absolute Neuts (auto) Absolute Lymphs (auto) Total Counted Differential Comment PT INR APTT Sodium Potassium Chloride Carbon Dioxide BUN Creatinine Estim Creat Clear Calc Est GFR (MDRD) Af Amer Est GFR (MDRD) Non-Af BUN/Creatinine Ratio Glucose Hemoglobin A1c < 3.5 L Calcium Phosphorus Iron TIBC Iron Saturation Troponin I 0.163 H Albumin Vitamin D 25-Hydroxy PTH Intact Hep Bs Antigen Blood Type O POSITIVE Antibody Screen NEGATIVE Crossmatch See Detail 10/05/18 10/05/18 10/05/18 12:45 12:45 15:15 WBC RBC Hgb Hct MCV MCH MCHC RDW RDW Differential Plt Count MPV Immature Gran % (Auto) Neut % (Auto) Lymph % (Auto) [place] % (Auto) Eos % (Auto) Baso % (Auto) Absolute Neuts (auto) Absolute Lymphs (auto) Total Counted Differential Comment PT INR APTT Sodium Potassium Chloride Carbon Dioxide BUN Creatinine Estim Creat Clear Calc Est GFR (MDRD) Af Amer Est GFR (MDRD) Non-Af BUN/Creatinine Ratio Glucose Hemoglobin A1c Calcium Phosphorus Iron TIBC Iron Saturation Troponin I 0.153 H Albumin Vitamin D 25-Hydroxy 24.2 L PTH Intact Hep Bs Antigen Pending Blood Type Antibody Screen Crossmatch 10/05/18 10/06/18 10/06/18 15:15 05:08 05:08 WBC 6.6 RBC 2.61 L Hgb 7.7 L Hct 23.2 L MCV 88.9 MCH 29.5 MCHC 33.2 RDW 17.3 H RDW Differential 54.0 H Plt Count 192 MPV 10.0 Immature Gran % (Auto) 0.200 Neut % (Auto) 84.2 H Lymph % (Auto) 4.5 L [place] % (Auto) 9.5 Eos % (Auto) 1.4 Baso % (Auto) 0.2 Absolute Neuts (auto) 5.6 Absolute Lymphs (auto) 0.30 L Total Counted Not Reportable Differential Comment PT INR APTT Sodium 141 Potassium 5.7 H 5.6 H Chloride 112 H Carbon Dioxide 15.0 L BUN 145 H* Creatinine 11.50 H* Estim Creat Clear Calc 6.31 Est GFR (MDRD) Af Amer 6 L Est GFR (MDRD) Non-Af 5 L BUN/Creatinine Ratio 12.6 Glucose 99 Hemoglobin A1c Calcium 6.9 L Phosphorus 9.3 H* Iron TIBC Iron Saturation Troponin I Albumin 2.5 L Vitamin D 25-Hydroxy PTH Intact Hep Bs Antigen Blood Type Antibody Screen Crossmatch 10/06/18 10/06/18 05:08 05:08 WBC RBC Hgb Hct MCV MCH MCHC RDW RDW Differential Plt Count MPV Immature Gran % (Auto) Neut % (Auto) Lymph % (Auto) [place] % (Auto) Eos % (Auto) Baso % (Auto) Absolute Neuts (auto) Absolute Lymphs (auto) Total Counted Differential Comment PT 16.4 H INR 1.3 APTT 33.2 Sodium Potassium Chloride Carbon Dioxide BUN Creatinine Estim Creat Clear Calc Est GFR (MDRD) Af Amer Est GFR (MDRD) Non-Af BUN/Creatinine Ratio Glucose Hemoglobin A1c 5.0 Calcium Phosphorus Iron TIBC Iron Saturation Troponin I Albumin Vitamin D 25-Hydroxy PTH Intact Hep Bs Antigen Blood Type Antibody Screen Crossmatch POC Glucose 10/06/18 10/05/18 10/05/18 06:45 22:41 17:22 POC Glucose 97 120 H 140 H Medical Necessity - Tobacco Use Smoking Status: Never smoker Tobacco Use: Non-smoker Assessment/Plan All Active Problems Anemia (Acute) Acute electrocardiogram changes (Acute) Hyperkalemia (Acute) Acute renal failure (Acute) 1. ESRD due to diabetic nephropathy. HD today and tomorrow after TCC placed this afternoon. Arrange outpt dialysis prior to discharge. 2. Hyperkalemia treated medically. 3. Metabolic acidosis correct with dialysis. 4. Iron deficiency Anemia s/p Blood transfusion. IV iron load on dialysis 5. Hypocalcemia with secondary hyperparathyroidism. Start calcitriol on dialysis. 6. Diabetes mellitus type 2 primary service management 7. Hypertension with stable blood pressure 8. History of medical noncompliance with follow-up appointments 9. hyperphosphatemia start binders
[2018-10-06 11:06] LABS: HEPATITIS B SURFACE AG Negative (Negative)
[2018-10-06 11:55] LABS: Bedside Glucose 75 mg/dL (70-110)
--- NOTE | 2018-10-06 11:58 | PN_ITS ---
Patient Problems: Active and Suspected Problems Anemia (Acute) Hyperkalemia (Acute) Subjective: Patient was seen and examined. Had a tunneled catheter placed today. Will be getting dialysis today. Objective: Physical Exam General: Alert, Oriented x3, Cooperative, No apparent distress HEENT: Atraumatic, PERRLA, EOMI, Normocephalic Oral: Moist Mucosa Neck: Supple Lungs: Normal air movement, Diminished, - - basal crackles Cardiovascular: Regular rate, Regular Rhythm, Normal S1, Normal S2 Abdomen: Bowel Sounds Present, Soft, Non Tender, Non-Distended, No Hepato- splenomegaly Extremities: Edema - bilateral pedal +4 Skin: No rashes Musculoskeletal: No Tenderness to Palpation of Joints or Extremities Lymphatic: No Cervical, Supraclavicular, or Inguinal Adenopathy Neurological: Cranial nerves II-XII grossly intact, Neuro grossly intact Psych/Mental Status: Normal Affect, Appropriate Vitals/I&O's: Vital Signs Temp Pulse Resp BP Pulse Ox 98.4 F 85 20 H 159/76 H 96 10/06/18 04:34 10/06/18 11:37 10/06/18 11:37 10/06/18 04:34 10/06/18 04:34 Oxygen Delivery Method Room Air Weight: 86.2 kg Body Mass Index (BMI) 29.3 Intake and Output for Last 24 Hours 10/04/18 10/05/18 10/06/18 23:59 23:59 23:59 Intake Total 1020 / 1020 843 / 843 Balance 1020 / 1020 843 / 843 Microbiology Past 72 Hours 10/05/18 10:35 Stool Stool Occult Blood (JOSE) - Final Laboratory Results 10/05/18 08:30: PT 16.1 H, INR 1.3 10/05/18 08:30: Iron 17 L, TIBC 223 L, Iron Saturation 7.6 L 10/05/18 08:30: PTH Intact 1443.0 H 10/05/18 12:45: Hemoglobin A1c < 3.5 L 10/05/18 12:45: Blood Type O POSITIVE, Antibody Screen NEGATIVE, Crossmatch See Detail 10/05/18 12:45: Troponin I 0.163 H 10/05/18 12:45: Vitamin D 25-Hydroxy 24.2 L 10/05/18 12:45: Hep Bs Antigen Negative 10/05/18 15:15: Troponin I 0.153 H 10/05/18 15:15: Potassium 5.7 H 10/05/18 17:22: POC Glucose 140 H 10/05/18 22:41: POC Glucose 120 H 10/06/18 05:08: Sodium 141, Potassium 5.6 H, Chloride 112 H, Carbon Dioxide 15.0 L, BUN 145 H*, Creatinine 11.50 H*, Estim Creat Clear Calc 6.31, Est GFR (MDRD) Af Amer 6 L, Est GFR (MDRD) Non-Af 5 L, BUN/Creatinine Ratio 12.6, Glucose 99, Calcium 6.9 L, Phosphorus 9.3 H*, Albumin 2.5 L 10/06/18 05:08: WBC 6.6, RBC 2.61 L, Hgb 7.7 L, Hct 23.2 L, MCV 88.9, MCH 29.5, MCHC 33.2, RDW 17.3 H, RDW Differential 54.0 H, Plt Count 192, MPV 10.0, Immature Gran % (Auto) 0.200, Neut % (Auto) 84.2 H, Lymph % (Auto) 4.5 L, [place] % (Auto) 9.5, Eos % (Auto) 1.4, Baso % (Auto) 0.2, Absolute Neuts (auto) 5.6, Absolute Lymphs (auto) 0.30 L, Total Counted Not Reportable, Differential Comment 10/06/18 05:08: PT 16.4 H, INR 1.3, APTT 33.2 10/06/18 05:08: Hemoglobin A1c 5.0 10/06/18 06:45: POC Glucose 97 10/06/18 11:44: POC Glucose 75 Current Medications Albuterol/Ipratropium (Duoneb) 3 ml INHALATION Q4HWA.RT DEYSI Last Admin: 10/06/18 11:37 Dose: 3 ml Amlodipine Besylate (Norvasc) 10 mg PO DAILY [facility] Last Admin: 10/06/18 09:35 Dose: 10 mg Atorvastatin Calcium (Lipitor) 10 mg PO QODAY@2200 [facility] Bisacodyl (Dulcolax) 5 mg PO DAILY PRN PRN PRN Reason: Constipation Carvedilol (Coreg) 25 mg PO BID [facility] Last Admin: 10/06/18 09:36 Dose: 25 mg Glucagon () 1 mg IM .X1 PRN PRN Reason: Hypoglycemia Cefazolin Sodium 2 gm/ Sodium (Chloride) 120 mls @ 240 mls/hr IV SEND TO OR W/PATIENT ONE Stop: 10/06/18 13:29 Insulin Human Lispro (Humalog Kwikpen (Bkc)) 0 unit SQ ACHS [facility]; Protocol Last Admin: 10/06/18 07:23 Dose: Not Given Magnesium Hydroxide (Milk Of Magnesia) 30 ml PO DAILY PRN PRN Reason: Constipation Nutritional Formula (Lactose Free) (Glucerna Shake) 120 ml PO TIDCM [facility] Last Admin: 10/06/18 11:33 Dose: Not Given Psyllium Hydrophilic Mucilloid (Metamucil) 1 packet PO DAILY PRN PRN PRN Reason: CONSTIPATION Sevelamer Carbonate (Renvela) 1,600 mg PO TIDCM [facility] Last Admin: 10/06/18 11:33 Dose: Not Given Sodium Chloride () 5 - 15 ml IV UD PRN PRN Reason: SALINE FLUSH Last Admin: 10/06/18 00:19 Dose: 10 ml Medical Necessity - Tobacco Use Smoking Status: Never smoker Tobacco Use: Non-smoker Assessment/Plan All Active Problems Anemia (Acute) Acute electrocardiogram changes (Acute) Hyperkalemia (Acute) Acute renal failure (Acute) 63 year old M with medical history of CKD stage IV, hypertension, type II DM who last followed up with nephrology will start in 2017 comes in with abnormal blood work 1. EDENILSON, ESRD now, s/p tunneled catheter, started on dialysis today 2. Hyperkalemia secondary to EDENILSON, s/p kayexalate, getting dialysed today, labs in am 3. Acute fluid overload secondary to EDENILSON, improved, fluid removal planned in diaysis 4. Anemia, acute on chronic, deficiency mixed with anemia of chronic kidney disease, s/p 2 units pRBCs, another unit of blood planned today in dialysis 5. Non-gap metabolic acidosis secondary to EDENILSON, on sodium bicarbonate 6. Hypertension, controlled, on amlodipine, carvedilol, will continue to monitor 7. Type II DM, A1c less than 3.5, not on medications, will continue with Accu- Cheks with insulin sliding scale 8. DVT PPx- Heparin SC Code Visit Inpatient E&M: 31967 Subs Hosp L2
[2018-10-06] MEDS: Cefazolin 2 GM in 0.9% Normal Saline 100 ML IV (13:09)
--- NOTE | 2018-10-06 13:16 | VDUE_ITS ---
Reason For Study: Pre op AV fistula placement Right Arm Left Arm Right Cephalic Vein at the wrist Left Cephalic Vein at the wrist measures .18 measures .24 x .29 cm. x .20 cm. Right Cephalic Vein in the forearm Left Cephalic Vein in the forearm measures .25 x .28 cm. measures .28 x .34 cm. Right Cephalic Vein below antecub Left Cephalic Vein below antecub measures .30 x .31 cm. measures .24 x .24 cm. Right Cephalic Vein above antecub Cephalic vein is dilated and non- measures .24 x .29 cm. compressible from antecubital space to Right Cephalic Vein mid bicep measures .28 axillary level. x .28 cm. Basilic vein at origin measures .62 x .63 Right Cephalic Vein at the shoulder cm. measures .15 x .17 cm. Basilic vein at bicep measures .56 x .56 cm. Right Basilic Vein at the origin Basilic vein above antecub measures .47 measures .55 x .57 cm. x .47 cm. Right Basilic Vein mid bicep measures .55 Brachial artery - .456 x .47 cm with a x .56 cm. velocity of 95.0 cm/s Right Basilic Vein above antecub Radial artery - .22 x .22 cm with a velocity measures .59 xx .61 cm. of 90.3 cm/s. Brachial artery - .42 x .43 cm with a velocity of 82.4 cm/s Radial artery - .24 x .28 cm with a velcoity of 119.7 cm/s. Interpretation Summary Patent and compressible right upper extremity cephalic and basilic veins. Superficial thrombophlebitis left cephalic vein of the upper arm. Patent and compressible left upper arm basilic vein Normal flow bilateral radial and ulnar arteries. Ordering Physician: Karlos Carrasquillo Referring Physician: Tayo Layton Performed By: Moriah Aviles RVT ?
[2018-10-06] MEDS: Heparin 10,000 UNITS/10 ML Vial 10000 UNITS (13:50)
[2018-10-06] MEDS: Bupivacaine Mpf 0.5% 30 ML VIAL (13:50)
--- NOTE | 2018-10-06 13:58 | PCM.OPRPT ---
Problem List (1) Acute on chronic kidney failure Status: Chronic Qualifiers: Acute renal failure type: unspecified Chronic kidney disease stage: stage 5, not on chronic dialysis Qualified Code(s): N17.9 - Acute kidney failure, unspecified; N18.5 - Chronic kidney disease, stage 5 Report of Operation Date of Procedure: 10/06/18 Pre-Operative Diagnosis: Acute on chronic renal failure Post-Operative Diagnosis: Same Surgery/Procedure Performed:: Right internal jugular tunneled pre-curved 19 cm palindrome catheters. Lot #[id number] Description of Surgical Findings:: Timeout and informed consent was obtained. 63-year-old gentleman was taken to the operating placement table underwent monitored anesthesia care. The right neck and chest were sterilely prepped draped. Ancef 2 g given intravenously preoperatively. Under ultrasound guidance 1% lidocaine mixed 50-50 with 0.5% Marcaine was used as a local anesthetic. Throughout the procedure total of 14 cc was used. Local was instilled. Micropuncture needle inserted under ultrasound guidance of the right internal jugular vein. Micropuncture wire. Micropuncture sheath. Then local was instilled down upon the chest wall. The exit site was selected. The 19 cm pre-curved catheter was advanced from the chest site to the neck site. No 3 5 J-wire was inserted and fluoroscopy demonstrated good positioning. Serial dilatation was performed. The sheath dilator was inserted catheter was advanced through the sheath after the dilator wire removed however the catheter appeared to be twisted. So I did some blunt dissection I utilized an 035 angled Glidewire through the catheter was able to straighten the positioning out to a nice curvilinear position. It aspirated easily. It was flushed with saline and then 2-1/2 cc of heparinized saline for channel. The neck site with was closed with interrupted 5-0 Vicryl subdermal stitches. The catheter was secured to skin with interrupted 3-0 nylon. Steri-Strips Telfa OpSite dressings applied with silver impregnated dressing at the exit site. Sponge and instrument and needle counts were reported the surgeon correct blood loss was 100 cc he tolerated procedure well was taken to the recovery area in satisfactory condition without apparent complication. Stat portable chest x-ray is pending. Specimens none. Blood loss 100 cc. Drains none. Karlos Carrasquillo M.D., F.A.C.S. Type of Anesthesia:: Local MAC Anesthesiologist: Jerry Mckenzie
--- NOTE | 2018-10-06 14:01 | OP.PCM_ITS ---
Problem List (1) Acute on chronic kidney failure Status: Chronic Qualifiers: Acute renal failure type: unspecified Chronic kidney disease stage: stage 5, not on chronic dialysis Qualified Code(s): N17.9 - Acute kidney failure, unspecified; N18.5 - Chronic kidney disease, stage 5 Report of Operation Date of Procedure: 10/06/18 Pre-Operative Diagnosis: Acute on chronic renal failure Post-Operative Diagnosis: Same Surgery/Procedure Performed:: Right internal jugular tunneled pre-curved 19 cm palindrome catheters. Lot #[id number] Description of Surgical Findings:: Timeout and informed consent was obtained. 63-year-old gentleman was taken to the operating placement table underwent monitored anesthesia care. The right neck and chest were sterilely prepped draped. Ancef 2 g given intravenously preoperatively. Under ultrasound guidance 1% lidocaine mixed 50-50 with 0.5% Marcaine was used as a local anesthetic. Throughout the procedure total of 14 cc was used. Local was instilled. Micropuncture needle inserted under ultrasound guidance of the right internal jugular vein. Micropuncture wire. Micropuncture sheath. Then local was instilled down upon the chest wall. The exit site was selected. The 19 cm pre-curved catheter was advanced from the chest site to the neck site. No 3 5 J-wire was inserted and fluoroscopy demonstrated good positioning. Serial dilatation was performed. The sheath dilator was inserted catheter was advanced through the sheath after the dilator wire removed however the catheter appeared to be twisted. So I did some blunt dissection I utilized an 035 angled Glidewire through the catheter was able to straighten the positioning out to a nice curvilinear position. It aspirated easily. It was flushed with saline and then 2-1/2 cc of heparinized saline for channel. The neck site with was closed with interrupted 5-0 Vicryl subdermal stitches. The catheter was secured to skin with interrupted 3-0 nylon. Steri- Strips Telfa OpSite dressings applied with silver impregnated dressing at the exit site. Sponge and instrument and needle counts were reported the surgeon correct blood loss was 100 cc he tolerated procedure well was taken to the recovery area in satisfactory condition without apparent complication. Stat portable chest x-ray is pending. Specimens none. Blood loss 100 cc. Drains none. Karlos Carrasquillo M.D., F.A.C.S. Type of Anesthesia:: Local MAC Anesthesiologist: Jerry Mckenzie
--- NOTE | 2018-10-06 14:35 | EKG12_ITS ---
Test Reason : POST OP Blood Pressure : / mmHG Vent. Rate : 068 BPM Atrial Rate : 068 BPM P-R Int : 186 ms QRS Dur : 080 ms QT Int : 472 ms P-R-T Axes : 022 -32 212 degrees QTc Int : 501 ms Normal sinus rhythm Left axis deviation ST & T wave abnormality, consider anterolateral ischemia Prolonged QT Abnormal ECG When compared with ECG of 06-OCT-2018 14:43, MANUAL COMPARISON REQUIRED, DATA IS UNCONFIRMED Confirmed by YUE CISNEROS, RENETTA ([id number]), city editor KLARISSA CLARK ([id number]) on 10/11/2018 1:33:37 PM Referred By: HUMZA Confirmed By:RENETTA TURNER MD
--- NOTE | 2018-10-06 14:39 | RAD_ITS ---
STUDY: X-RAY CHEST REASON FOR EXAM: Male, 63 years old. Post dialysis catheter placement. TECHNIQUE: Portable upright chest COMPARISON: Chest x-ray 10/05/2018 FINDINGS: Right internal jugular dual-lumen central venous catheter tip in proximal SVC. Moderately prominent perihilar edema. Small right, moderate layering left pleural effusion, bibasilar atelectasis. Cardiomegaly. RAD/CXR for Line Placement IMPRESSION: Pulmonary edema with effusions. Dialysis catheter tip in proximal right atrium. Electronically Signed: Willam Kovacs MD at 17:31 EDT Tel , Service support ,
[2018-10-06 17:40] LABS: Bedside Glucose 71 mg/dL (70-110)
--- NOTE | 2018-10-06 17:40 | DIALYSIS ---
Pt tolerated initial 2hr HD tx well. Good flow from RIJ CVC. Net UF -1000ml. See flow record for tx data.
[2018-10-06] MEDS: Heparin 10,000 UNITS/10 ML Vial IV (18:43)
[2018-10-06] MEDS: Calcitriol 0.25 MCG Capsule 0.5 MCG PO (18:44)
[2018-10-06] MEDS: SEVELAMER CARBONATE 800 MG TABLET 1600 MG PO (18:45)
[2018-10-06] MEDS: Glucerna Shake 120 ML LIQUID PO (18:46)
[2018-10-06 20:21] LABS: Magnesium 1.4 mg/dL (1.6-2.6)
[2018-10-06] MEDS: Magnesium Sulfate 4gm/100mL 4 GM/100 ML IV.SOLN. IV (22:55)
[2018-10-06] MEDS: Insulin Lispro 100 UNIT/ML INSULN.PEN SQ (23:05)
[2018-10-06 23:10] LABS: Bedside Glucose 153 mg/dL (70-110)
[2018-10-07] VITALS (13 sets, daily range): BP systolic 117–126; BP diastolic 60–69; PULSE 64–72; RESP 16–20; TEMP 36.7–37.3; O2SAT 93–98
--- NOTE | 2018-10-07 06:30 | PCM.PN.SRG ---
Patient Problems: Active and Suspected Problems Anemia (Acute) Hyperkalemia (Acute) Subjective: Pt comfortable, no complaints - Physical Exam Cardiovascular: - - Right IJ and chest site clean and dry Vital Signs Temp Pulse Resp BP Pulse Ox 98.1 F 67 18 117/65 98 10/07/18 04:25 10/07/18 04:25 10/07/18 04:25 10/07/18 04:25 10/07/18 04:25 Oxygen Flow Rate (L/min) 2 Oxygen Delivery Method Room Air Weight: 190 lb 0.615 oz Body Mass Index (BMI) 29.3 Intake and Output for Last 24 Hours 10/05/18 10/06/18 10/07/18 23:59 23:59 23:59 Intake Total 1020 / 1020 1723 / 1723 264.6 / 264.6 Output Total 1000 / 1000 100 / 100 Balance 1020 / 1020 723 / 723 164.6 / 164.6 Microbiology Past 72 Hours 10/05/18 10:35 Stool Occult Blood (JOSE) - Final Stool Laboratory Tests Past 24 Hrs 10/05/18 10/05/18 10/05/18 12:45 12:45 12:45 WBC RBC Hgb Hct MCV MCH MCHC RDW RDW Differential Plt Count Neut % (Auto) Absolute Neuts (auto) Total Counted Sodium Potassium Chloride Carbon Dioxide BUN Creatinine Est GFR (MDRD) Af Amer Est GFR (MDRD) Non-Af BUN/Creatinine Ratio Glucose Hemoglobin A1c Calcium Phosphorus Magnesium Troponin I Albumin Hep Bs Antigen Negative Crossmatch See Detail See Detail 10/06/18 10/06/18 10/06/18 05:08 12:35 12:35 WBC RBC Hgb Hct MCV MCH MCHC RDW RDW Differential Plt Count Neut % (Auto) Absolute Neuts (auto) Total Counted Sodium Potassium Chloride Carbon Dioxide BUN Creatinine Est GFR (MDRD) Af Amer Est GFR (MDRD) Non-Af BUN/Creatinine Ratio Glucose Hemoglobin A1c 5.0 Calcium Phosphorus Magnesium 1.4 L Troponin I 0.134 H Albumin Hep Bs Antigen Crossmatch 10/07/18 10/07/18 05:40 05:40 WBC Pending RBC Pending Hgb Pending Hct Pending MCV Pending MCH Pending MCHC Pending RDW Pending RDW Differential Pending Plt Count Pending Neut % (Auto) Pending Absolute Neuts (auto) Pending Total Counted Pending Sodium Pending Potassium Pending Chloride Pending Carbon Dioxide Pending BUN Pending Creatinine Pending Est GFR (MDRD) Af Amer Pending Est GFR (MDRD) Non-Af Pending BUN/Creatinine Ratio Pending Glucose Pending Hemoglobin A1c Calcium Pending Phosphorus Pending Magnesium Troponin I Albumin Pending Hep Bs Antigen Crossmatch POC Glucose 10/06/18 10/06/18 10/06/18 22:54 17:37 11:44 POC Glucose 153 H 71 75 10/06/18 06:45 POC Glucose 97 Medical Necessity - Tobacco Use Smoking Status: Never smoker Tobacco Use: Non-smoker Assessment/Plan All Active Problems Anemia (Acute) Acute electrocardiogram changes (Acute) Hyperkalemia (Acute) Acute renal failure (Acute) Ongoing medical management I will obtain arm vein mapping today Will plan outpt followup for future fistula once medically improved
[2018-10-07 06:46] LABS: Albumin, Serum 2.2 g/dL (3.2-5.0); BUN 110 mg/dL (7-18); BUN/Creat Ratio 11.9 RATIO (10-20); Calcium,Total 6.9 mg/dL (8.5-10.1); Chloride 107 mmol/L (98-107); Creatinine, Serum 9.26 mg/dL (0.70-1.30); EST Glomerular Filtration Rate 6 mL/min (>60); Est Glom Filt Rate - Afr Amer 8 mL/min (>60); Estimated Creatinine Clearance 7.83 ml/min; Glucose 110 mg/dL (74-106); Potassium 5.3 mmol/L (3.5-5.1); Sodium Level 139 mmol/L (136-145)
[2018-10-07 07:01] LABS: Bedside Glucose 101 mg/dL (70-110)
[2018-10-07] MEDS: Ipratropium/Albuterol Sulfate 3 ML AMPUL.NEB INHALATION ×3 (07:02→19:12)
[2018-10-07 07:10] LABS: Hemoglobin 8.6 g/dl (13.0-16.5); Red Blood Count 2.89 M/mm3 (4.6-6.2); White Blood Count 5.5 K/mm3 (4.4-11.0)
[2018-10-07 07:11] LABS: Absolute Lymphocyte Count 0.61 X10^3/ul (0.83-4.51); Absolute Neutrophil Count 4.4 X10^3/uL (2.0-7.7); Basophil# 0.01 X10^3/uL; Basophil% 0.2 % (0-1); Eosinophil# 0.15 X10^3/uL; Eosinophils% 2.7 % (0-5); Hematocrit 25.6 % (40-54); Lymphocyte # 0.61 X10^3/ul (4.0); Mean Corp Hgb Conc 33.6 g/gl (32-36); Mean Corpuscular Hgb 29.8 pg (27.0-32.0); Mean Corpuscular Volume 88.6 fL (80-94); Mean Platelet Vol. 9.9 fl (6.2-12.0); Monocyte# 0.39 X10^3/uL; Neutrophil # 4.38 X10^3/uL (2.7-7.7); Neutrophil % 79.1 % (47-70); POSITIVE DIFFERENTIAL NO; POSITIVE MORPHOLOGY NO; Platelet Count 154 K/mm3 (150-450); RBC Distribution Width CV 16.7 % (11.6-14.6)
--- NOTE | 2018-10-07 08:11 | NURSING ---
R subclavian tunnelled dialysis catheter site stable without drainage. manufacture specialist at bedside preparing for tx at this time. Morning meds held until after HD tx.
[2018-10-07 08:26] LABS: Magnesium 2.4 mg/dL (1.6-2.6)
--- NOTE | 2018-10-07 08:34 | PCM.PN.REN ---
Patient Problems: Active and Suspected Problems Anemia (Acute) Hyperkalemia (Acute) Subjective: tolerated first dialysis treatment last night. 1L fluid removed. Seen at start of dialysis today. - Physical Exam General: Alert, Oriented x3, Cooperative Cardiovascular: Regular rate, Murmur Abdomen: Bowel Sounds Present, Soft, Non Tender, Non-Distended Extremities: Edema - trace Psych/Mental Status: Normal Affect, Alert and oriented to time, place, person, mood and affect Vital Signs Temp Pulse Resp BP Pulse Ox 99.2 F H 69 16 124/69 H 94 10/07/18 07:56 10/07/18 07:56 10/07/18 07:56 10/07/18 07:56 10/07/18 07:56 Oxygen Flow Rate (L/min) 2 Oxygen Delivery Method Room Air Weight: 87.4 kg Body Mass Index (BMI) 29.3 Intake and Output for Last 24 Hours 10/05/18 10/06/18 10/07/18 23:59 23:59 23:59 Intake Total 1020 / 1020 1723 / 1723 361.4 / 361.4 Output Total 1000 / 1000 100 / 100 Balance 1020 / 1020 723 / 723 261.4 / 261.4 Microbiology Past 72 Hours 10/05/18 10:35 Stool Occult Blood (JOSE) - Final Stool Laboratory Tests Past 24 Hrs 10/05/18 10/05/18 10/05/18 12:45 12:45 12:45 WBC RBC Hgb Hct MCV MCH MCHC RDW RDW Differential Plt Count MPV Immature Gran % (Auto) Neut % (Auto) Lymph % (Auto) [place] % (Auto) Eos % (Auto) Baso % (Auto) Absolute Neuts (auto) Absolute Lymphs (auto) Total Counted Sodium Potassium Chloride Carbon Dioxide BUN Creatinine Estim Creat Clear Calc Est GFR (MDRD) Af Amer Est GFR (MDRD) Non-Af BUN/Creatinine Ratio Glucose Hemoglobin A1c Calcium Phosphorus Magnesium Troponin I Albumin Hep Bs Antigen Negative Crossmatch See Detail See Detail 10/06/18 10/06/18 10/06/18 05:08 12:35 12:35 WBC RBC Hgb Hct MCV MCH MCHC RDW RDW Differential Plt Count MPV Immature Gran % (Auto) Neut % (Auto) Lymph % (Auto) [place] % (Auto) Eos % (Auto) Baso % (Auto) Absolute Neuts (auto) Absolute Lymphs (auto) Total Counted Sodium Potassium Chloride Carbon Dioxide BUN Creatinine Estim Creat Clear Calc Est GFR (MDRD) Af Amer Est GFR (MDRD) Non-Af BUN/Creatinine Ratio Glucose Hemoglobin A1c 5.0 Calcium Phosphorus Magnesium 1.4 L Troponin I 0.134 H Albumin Hep Bs Antigen Crossmatch 10/07/18 10/07/18 10/07/18 05:40 05:40 05:40 WBC 5.5 RBC 2.89 L Hgb 8.6 L Hct 25.6 L MCV 88.6 MCH 29.8 MCHC 33.6 RDW 16.7 H RDW Differential 53.0 H Plt Count 154 MPV 9.9 Immature Gran % (Auto) 0.000 Neut % (Auto) 79.1 H Lymph % (Auto) 11.0 L Barnwell % (Auto) 7.0 Eos % (Auto) 2.7 Baso % (Auto) 0.2 Absolute Neuts (auto) 4.4 Absolute Lymphs (auto) 0.61 L Total Counted Not Reportable Sodium 139 Potassium 5.3 H Chloride 107 Carbon Dioxide 20.0 L BUN 110 H* Creatinine 9.26 H* Estim Creat Clear Calc 7.83 Est GFR (MDRD) Af Amer 8 L Est GFR (MDRD) Non-Af 6 L BUN/Creatinine Ratio 11.9 Glucose 110 H Hemoglobin A1c Calcium 6.9 L Phosphorus 9.0 H* Magnesium 2.4 Troponin I Albumin 2.2 L Hep Bs Antigen Crossmatch POC Glucose 10/07/18 10/06/18 10/06/18 06:57 22:54 17:37 POC Glucose 101 153 H 71 10/06/18 11:44 POC Glucose 75 Medical Necessity - Tobacco Use Smoking Status: Never smoker Tobacco Use: Non-smoker Assessment/Plan All Active Problems Anemia (Acute) Acute electrocardiogram changes (Acute) Hyperkalemia (Acute) Acute renal failure (Acute) 1. ESRD due to diabetic nephropathy. HD last night and 2nd tx today. Schedule 3rd tx tomorrow. Await insurance coverage arrangements. 2. Hyperkalemia improved with dialysis. 3. Metabolic acidosis corrected with dialysis. 4. Iron def Anemia continue iv iron load on dialysis 5. Hyperparathyroidism. Calcitriol 0.5mcg qtx. 6. Diabetes mellitus type 2 primary service management 7. Hypertension with stable blood pressure 8. hyperphosphatemia continue binders DW SW, CM
--- NOTE | 2018-10-07 08:51 | CASEMGMT ---
Addendum entered by Cara Izaguirre 10/07/18 10:35: This RN CM has still not received call from at this time. Call to [facility] to just verify that coverage was terminated as per registration stated. Per Tyesha at [facility], pt does still have coverage but the first 3 letters of the ID number have changed as well as the group number and are as follows: ID number: [id number] and Grp number: [id number]. This was updated on the facesheet at this time by this RN CM and referral was faxed to [facility] at this time. Call to registration to notify at this time. Call to Megh[facility] to notify at this time, voices understanding. Salvatore OWUSU CM Original Note: Per Svetlana OWUSU, she spoke with regarding insurance and she said she would go get card and then never brought it to her. This RN CM attempted to reach via cell phone again this am without success and voicemail box is still full. Pt states that works at [employer] in [place] and suggests that this RN CM try to call school to get ahold of her at this time. Referral for dialysis has been on hold d/t insurance clarification/verification at this time. Message left on 's voicemail to call this RN CM back ivy. Dr. Nieto updated on all, voices understanding. Salvatore OWUSU CM
[2018-10-07] MEDS: Glucerna Shake 120 ML LIQUID PO ×2 (12:58→17:25)
[2018-10-07] MEDS: Carvedilol 25 MG Tablet PO ×2 (12:59→21:57)
[2018-10-07] MEDS: amLODIPine 10 MG Tablet PO (12:59)
[2018-10-07] MEDS: SEVELAMER CARBONATE 800 MG TABLET 1600 MG PO ×2 (12:59→17:25)
[2018-10-07] MEDS: Insulin Lispro 100 UNIT/ML INSULN.PEN SQ (13:00)
[2018-10-07] MEDS: Calcitriol 0.25 MCG Capsule 0.5 MCG PO (13:00)
[2018-10-07 13:15] LABS: Bedside Glucose 169 mg/dL (70-110)
[2018-10-07] MEDS: 0.9% NaCl Peripheral Flush Adult/Peds IV (13:20)
--- NOTE | 2018-10-07 14:14 | PCM.PN.HOSP ---
Patient Problems: Active and Suspected Problems Anemia (Acute) Hyperkalemia (Acute) Subjective: Patient was seen and examined. He feels improved. No acute events overnight. Dialysis #2 scheduled for today. Denies any chest pain or worsening shortness of breath. Off oxygen Objective: Physical Exam General: Alert, Oriented x3, Cooperative, No apparent distress HEENT: Atraumatic, PERRLA, EOMI, Normocephalic Oral: Moist Mucosa Neck: Supple Lungs: Normal air movement, Diminished, - - basal crackles Cardiovascular: Regular rate, Regular Rhythm, Normal S1, Normal S2 Abdomen: Bowel Sounds Present, Soft, Non Tender, Non-Distended, No Hepato-splenomegaly Extremities: Edema - bilateral pedal +4 Skin: No rashes Musculoskeletal: No Tenderness to Palpation of Joints or Extremities Lymphatic: No Cervical, Supraclavicular, or Inguinal Adenopathy Neurological: Cranial nerves II-XII grossly intact, Neuro grossly intact Psych/Mental Status: Normal Affect, Appropriate Vitals/I&O's: Vital Signs Temp Pulse Resp BP Pulse Ox 98.9 F 67 20 H 125/60 H 94 10/07/18 12:51 10/07/18 12:51 10/07/18 12:51 10/07/18 12:51 10/07/18 12:51 Oxygen Flow Rate (L/min) 2 Oxygen Delivery Method Room Air Weight: 87.4 kg Body Mass Index (BMI) 29.3 Intake and Output for Last 24 Hours 10/05/18 10/06/18 10/07/18 23:59 23:59 23:59 Intake Total 1020 / 1020 1723 / 1723 601.4 / 601.4 Output Total 1000 / 1000 100 / 100 Balance 1020 / 1020 723 / 723 501.4 / 501.4 Microbiology Past 72 Hours 10/05/18 10:35 Stool Stool Occult Blood (JOSE) - Final Laboratory Results 10/05/18 12:45: Crossmatch See Detail 10/06/18 12:35: Magnesium 1.4 L 10/06/18 17:37: POC Glucose 71 10/06/18 22:54: POC Glucose 153 H 10/07/18 05:40: Sodium 139, Potassium 5.3 H, Chloride 107, Carbon Dioxide 20.0 L, BUN 110 H*, Creatinine 9.26 H*, Estim Creat Clear Calc 7.83, Est GFR (MDRD) Af Amer 8 L, Est GFR (MDRD) Non-Af 6 L, BUN/Creatinine Ratio 11.9, Glucose 110 H, Calcium 6.9 L, Phosphorus 9.0 H*, Albumin 2.2 L 10/07/18 05:40: WBC 5.5, RBC 2.89 L, Hgb 8.6 L, Hct 25.6 L, MCV 88.6, MCH 29.8, MCHC 33.6, RDW 16.7 H, RDW Differential 53.0 H, Plt Count 154, MPV 9.9, Immature Gran % (Auto) 0.000, Neut % (Auto) 79.1 H, Lymph % (Auto) 11.0 L, Arthur % (Auto) 7.0, Eos % (Auto) 2.7, Baso % (Auto) 0.2, Absolute Neuts (auto) 4.4, Absolute Lymphs (auto) 0.61 L, Total Counted Not Reportable 10/07/18 05:40: Magnesium 2.4 10/07/18 06:57: POC Glucose 101 10/07/18 12:51: POC Glucose 169 H Current Medications Acetaminophen (Tylenol) 650 mg PO Q6H PRN PRN PRN Reason: pain Albuterol/Ipratropium (Duoneb) 3 ml INHALATION Q4HWA.RT [facility] Last Admin: 10/07/18 07:02 Dose: 3 ml Amlodipine Besylate (Norvasc) 10 mg PO DAILY [facility] Last Admin: 10/07/18 12:59 Dose: 10 mg Atorvastatin Calcium (Lipitor) 10 mg PO QODAY@2200 [facility] Bisacodyl (Dulcolax) 5 mg PO DAILY PRN PRN PRN Reason: Constipation Carvedilol (Coreg) 25 mg PO BID [facility] Last Admin: 10/07/18 12:59 Dose: 25 mg Glucagon () 1 mg IM .X1 PRN PRN Reason: Hypoglycemia Insulin Human Lispro (Humalog Kwikpen (Bkc)) 0 unit SQ ACHS [facility]; Protocol Last Admin: 10/07/18 13:00 Dose: 1 units Magnesium Hydroxide (Milk Of Magnesia) 30 ml PO DAILY PRN PRN Reason: Constipation Nutritional Formula (Lactose Free) (Glucerna Shake) 120 ml PO TIDCM [facility] Last Admin: 10/07/18 12:58 Dose: 120 ml Psyllium Hydrophilic Mucilloid (Metamucil) 1 packet PO DAILY PRN PRN PRN Reason: CONSTIPATION Sevelamer Carbonate (Renvela) 1,600 mg PO TIDCM [facility] Last Admin: 10/07/18 12:59 Dose: 1,600 mg Sodium Chloride () 5 - 15 ml IV UD PRN PRN Reason: SALINE FLUSH Last Admin: 10/07/18 13:20 Dose: 10 ml Medical Necessity - Tobacco Use Smoking Status: Never smoker Tobacco Use: Non-smoker Assessment/Plan All Active Problems Anemia (Acute) Acute electrocardiogram changes (Acute) Hyperkalemia (Acute) Acute renal failure (Acute) 63 year old M with medical history of CKD stage IV, hypertension, type II DM who last followed up with nephrology will start in 2017 comes in with abnormal blood work 1. EDENILSON, ESRD now, s/p tunneled catheter, getting dialysis #2, outpatient dialysis being arranged 2. Hyperkalemia secondary to EDENILSON, s/p kayexalate, improved, will follow with labs in a.m. 3. Acute fluid overload secondary to EDENILSON, improved, 1 L fluid removed yesterday in dialysis, will continue to follow on today's dialysis 4. Anemia, acute on chronic, deficiency mixed with anemia of chronic kidney disease, s/p 3 units pRBCs, Hb is 8.6. 5. Non-gap metabolic acidosis secondary to EDENILSON, on sodium bicarbonate 6. Hypertension, controlled, on amlodipine, carvedilol, will continue to monitor 7. Elevated troponins secondary to non-GA troponin elevation secondary to AK I/ESRD, POA 8. Hypomagnesemia, replaced, repeat magnesium this morning is 2.4 9. Type II DM, A1c less than 3.5, not on medications, will continue with Accu-Cheks with insulin sliding scale 10. DVT PPx- Heparin SC Code Visit Inpatient E&M: 47066 Subs Hosp L2
[2018-10-07 16:51] LABS: Bedside Glucose 117 mg/dL (70-110)
[2018-10-07] MEDS: Atorvastatin Calcium 10 MG Tablet PO (21:58)
[2018-10-07 23:36] LABS: Bedside Glucose 129 mg/dL (70-110)
[2018-10-08] VITALS (9 sets, daily range): BP systolic 123–152; BP diastolic 56–79; PULSE 67–89; RESP 16–18; TEMP 36.6–37; O2SAT 93–97
[2018-10-08 05:54] LABS: Absolute Lymphocyte Count 0.85 X10^3/ul (0.83-4.51); Absolute Neutrophil Count 3.6 X10^3/uL (2.0-7.7); Basophil# 0.01 X10^3/uL; Basophil% 0.2 % (0-1); Eosinophil# 0.12 X10^3/uL; Eosinophils% 2.5 % (0-5); Hematocrit 25.8 % (40-54); Hemoglobin 8.3 g/dl (13.0-16.5); Lymphocyte # 0.85 X10^3/ul (4.0); Lymphocyte % 17.4 % (19-41); Mean Corp Hgb Conc 32.2 g/gl (32-36); Mean Corpuscular Hgb 28.8 pg (27.0-32.0); Mean Corpuscular Volume 89.6 fL (80-94); Mean Platelet Vol. 9.5 fl (6.2-12.0); Monocyte# 0.32 X10^3/uL; Monocyte% 6.5 % (0-10); Neutrophil # 3.59 X10^3/uL (2.7-7.7); Neutrophil % 73.4 % (47-70); Platelet Count 106 K/mm3 (150-450); RBC Distribution Width CV 16.4 % (11.6-14.6); RBC Distribution Width SD 53.9 fl (35.1-43.9); Red Blood Count 2.88 M/mm3 (4.6-6.2); White Blood Count 4.9 K/mm3 (4.4-11.0)
[2018-10-08 05:57] LABS: POSITIVE COUNT NO; POSITIVE DIFFERENTIAL NO; POSITIVE MORPHOLOGY NO
[2018-10-08 06:12] LABS: Albumin, Serum 2.1 g/dL (3.2-5.0); BUN 87 mg/dL (7-18); BUN/Creat Ratio 11.9 RATIO (10-20); Calcium,Total 7.1 mg/dL (8.5-10.1); Chloride 104 mmol/L (98-107); Creatinine, Serum 7.33 mg/dL (0.70-1.30); EST Glomerular Filtration Rate 8 mL/min (>60); Est Glom Filt Rate - Afr Amer 10 mL/min (>60); Estimated Creatinine Clearance 9.89 ml/min; Glucose 100 mg/dL (74-106); Potassium 4.3 mmol/L (3.5-5.1); Sodium Level 136 mmol/L (136-145)
[2018-10-08 07:01] LABS: Bedside Glucose 93 mg/dL (70-110)
[2018-10-08] MEDS: Ipratropium/Albuterol Sulfate 3 ML AMPUL.NEB INHALATION ×2 (07:22→11:20)
--- NOTE | 2018-10-08 09:08 | CASEMGMT ---
Addendum entered by Cara Izaguirre 10/08/18 14:58: 1443 This RN CM has still not received schedule letter and message left with [facility] regarding same at this time. Call to Deanna at [facility] and she states that pt will T,T,S at 1130 and pt will need to be there at 1100 for the 1st visit and will need someone to drive him. This was all placed in pt d/c f/u appts and copy placed with discharge instructions at this time in case schedule letter does not arrive. Pt was updated on all, voices understanding. Salvatore RN JON Original Note: Addendum entered by Cara Izaguirre 10/08/18 11:41: Call back from [facility] and she states that they could put pt on 3rd shift M,W,F but they would not be able to start pt until thursday at [facility] and she wonders if pt would be willing to do T,Th,Sat and this RN CM to room at this time while on phone with [facility] and pt is agreeable to T,Th,Sat at this time. Cecilia states she will fax schedule letter once complete. Dr. Valdivia updated, voices understanding. Salvatore OWUSU CM Original Note: Addendum entered by Cara Izaguirre 10/08/18 11:29: This RN CM received call from Cecilia at [facility]. She states she wanted to verify pt info and states that she will be calling [facility] to verify start date on wednesday 10/11 and the chair time. She states that she will fax this RN CM the schedule letter once obtained. Dr. Valdivia and pt updated on all at this time, voice understanding. Salvatore OWUSU CM Original Note: Call to [facility] for update as referral was sent yesterday. Per rep, the coordinator is Karen at ext [phone] but she is not in yet for the day. Message left for her to call this RN CM back ivy. Salvatore OWUSU CM
[2018-10-08] MEDS: Carvedilol 25 MG Tablet PO (11:10)
[2018-10-08] MEDS: SEVELAMER CARBONATE 800 MG TABLET 1600 MG PO (11:10)
[2018-10-08] MEDS: Glucerna Shake 120 ML LIQUID PO (11:11)
[2018-10-08 11:40] LABS: Bedside Glucose 143 mg/dL (70-110)
--- NOTE | 2018-10-08 14:03 | PN.RENAL_ITS ---
Patient Problems: Active and Suspected Problems Anemia (Acute) Hyperkalemia (Acute) Subjective: denies SOB appetite better - Physical Exam General: Alert, Oriented x3, Cooperative, No apparent distress Lungs: Clear to auscultation Cardiovascular: Regular rate Extremities: No edema Psych/Mental Status: Alert and oriented to time, place, person, mood and affect Vital Signs Temp Pulse Resp BP Pulse Ox 97.9 F 70 16 123/78 H 96 10/08/18 09:55 10/08/18 11:16 10/08/18 09:55 10/08/18 09:55 10/08/18 09:55 Oxygen Flow Rate (L/min) 2 Oxygen Delivery Method Room Air Weight: 84 kg Body Mass Index (BMI) 29.3 Intake and Output for Last 24 Hours 10/06/18 10/07/18 10/08/18 23:59 23:59 23:59 Intake Total 1723 / 1723 841.4 / 841.4 840 / 840 Output Total 1000 / 1000 250 / 250 475 / 475 Balance 723 / 723 591.4 / 591.4 365 / 365 Microbiology Past 72 Hours 10/05/18 10:35 Stool Occult Blood (JOSE) - Final Stool Laboratory Tests Past 24 Hrs 10/05/18 10/08/18 10/08/18 12:45 05:04 05:04 WBC 4.9 RBC 2.88 L Hgb 8.3 L Hct 25.8 L MCV 89.6 MCH 28.8 MCHC 32.2 RDW 16.4 H RDW Differential 53.9 H Plt Count 106 L MPV 9.5 Immature Gran % (Auto) 0.000 Neut % (Auto) 73.4 H Lymph % (Auto) 17.4 L Baxter % (Auto) 6.5 Eos % (Auto) 2.5 Baso % (Auto) 0.2 Absolute Neuts (auto) 3.6 Absolute Lymphs (auto) 0.85 Total Counted Not Reportable Sodium 136 Potassium 4.3 Chloride 104 Carbon Dioxide 21.0 BUN 87 H Creatinine 7.33 H Estim Creat Clear Calc 9.89 Est GFR (MDRD) Af Amer 10 L Est GFR (MDRD) Non-Af 8 L BUN/Creatinine Ratio 11.9 Glucose 100 Calcium 7.1 L Phosphorus 8.0 H Albumin 2.1 L Crossmatch See Detail POC Glucose 10/08/18 10/08/18 10/07/18 11:08 06:56 21:56 POC Glucose 143 H 93 129 H 10/07/18 16:30 POC Glucose 117 H Medical Necessity - Tobacco Use Smoking Status: Never smoker Tobacco Use: Non-smoker Assessment/Plan All Active Problems Anemia (Acute) Acute electrocardiogram changes (Acute) Hyperkalemia (Acute) Acute renal failure (Acute) 1. ESRD due to diabetic nephropathy. HD #3 today. Dialysis TTS as outpt. Ok to dc home today after dialysis. 2. Hyperkalemia resolved with dialysis. 3. Metabolic acidosis corrected with dialysis. 4. Iron def Anemia continue iv iron load on dialysis 5. Hyperparathyroidism. Calcitriol 0.5mcg qtx. 6. Diabetes mellitus type 2 primary service management 7. Hypertension with stable blood pressure 8. hyperphosphatemia continue binders BRENT OCHOA, CM, hospitalist
--- NOTE | 2018-10-08 14:11 | PCM.DC ---
- Discharge Diagnoses Current Active Problems: Current Active and Chronic Problems Acute on chronic kidney failure (Chronic) Anemia (Acute) Hyperkalemia (Acute) Reason(s) for Visit for Discharge Instructions: Abnormal labs You will use the following diet at home:: Calorie/Carbohydrate Controlled (specify 1200, 1400, etc), Cardiac Your food should be the consistency of: Regular Your liquids should be the consistency of: Regular/Thin Discharge Activity: Return to Normal Activity Allergies/Adverse Reactions: Allergies No Known Allergies Allergy (Verified 10/05/18 09:07) Medications to take at Discharge Atorvastatin Calcium [Lipitor] 10 mg PO QODAY 11/12/15 Carvedilol [Coreg (Beta Rosalba)] 25 mg PO BID 11/12/15 Amlodipine Besylate 10 mg PO DAILY 10/05/18 Sodium Bicarbonate 650 mg PO BID 10/05/18 Sodium Polystyrene Sulfonate [Kayexalate] 15 gm PO DAILY 10/05/18 Acetaminophen [Tylenol Tablet] 650 mg PO Q6H PRN PRN tablet 10/08/18 Sevelamer HCl 1,600 mg PO TID #90 tablet 10/08/18 The following prescriptions were given: Sevelamer HCl 1,600 mg PO TID #90 tablet Primary Care Physician: Tayo Layton MD [Primary Care Provider] - Please follow up with your Primary Care Physician in: within 1-2 weeks Test Results: Test results from this visit will be discussed in further detail at your follow-up appointment, if applicable. Please Follow Up With: Liz Nieto DO When: as scheduled Proposed Discharge Date: 10/08/18
--- NOTE | 2018-10-08 14:14 | DCINST_ITS ---
- Discharge Diagnoses Current Active Problems: Current Active and Chronic Problems Acute on chronic kidney failure (Chronic) Anemia (Acute) Hyperkalemia (Acute) Reason(s) for Visit for Discharge Instructions: Abnormal labs You will use the following diet at home:: Calorie/Carbohydrate Controlled (specify 1200, 1400, etc), Cardiac Your food should be the consistency of: Regular Your liquids should be the consistency of: Regular/Thin Discharge Activity: Return to Normal Activity Allergies/Adverse Reactions: Allergies No Known Allergies Allergy (Verified 10/05/18 09:07) Medications to take at Discharge Atorvastatin Calcium [Lipitor] 10 mg PO QODAY 11/12/15 Carvedilol [Coreg (Beta Rosalba)] 25 mg PO BID 11/12/15 Amlodipine Besylate 10 mg PO DAILY 10/05/18 Sodium Bicarbonate 650 mg PO BID 10/05/18 Sodium Polystyrene Sulfonate [Kayexalate] 15 gm PO DAILY 10/05/18 Acetaminophen [Tylenol Tablet] 650 mg PO Q6H PRN PRN tablet 10/08/18 Sevelamer HCl 1,600 mg PO TID #90 tablet 10/08/18 The following prescriptions were given: Sevelamer HCl 1,600 mg PO TID #90 tablet Primary Care Physician: Tayo Layton MD [Primary Care Provider] - Please follow up with your Primary Care Physician in: within 1-2 weeks Test Results: Test results from this visit will be discussed in further detail at your follow- up appointment, if applicable. Please Follow Up With: Liz Nieto DO When: as scheduled Proposed Discharge Date: 10/08/18
--- NOTE | 2018-10-08 14:14 | PCM.DC.SUM ---
Discharge Date and Diagnosis Date of Admission: 10/05/18 Date of Discharge: 10/08/18 - Primary Discharge Diagnosis Active and Suspected Problems EDENILSON/ESRD Hyperkalemia Acute fluid overload Acute hypoxic respiratory insufficiency Acute on chronic anemia, iron deficiency, anemia of chronic disease Non-gap metabolic acidosis Non-TN troponin elevation Hypomagnesemia - Secondary Discharge Diagnosis Chronic Problems Acute on chronic kidney failure (Chronic) Type II diabetes mellitus (Chronic) Hyperlipidemia (Chronic) Hypertension (Chronic) Hospital Course and Treatment Imaging Results: Clinical Impression(s) from Imaging Studies Chest X-Ray 10/05/18 09:18 IMPRESSION: Small left pleural effusion with underlying left lower lobe infiltration and/or atelectasis. Mild increased markings at the right lung base. Cardiomegaly. Electronically Signed: Jay Jay Dwyer, at 9:34 EDT , Service support , Renal Ultrasound 10/05/18 12:25 IMPRESSION: Findings suggestive a 4 mm focus in the left kidney. Electronically Signed: Jay Jay Dwyer, at 14:06 EDT , Service support , Chest X-Ray 10/06/18 14:39 IMPRESSION: Pulmonary edema with effusions. Dialysis catheter tip in proximal right atrium. Electronically Signed: Willam Kovacs MD at 17:31 EDT Tel , Service support , Nephrology General surgery Operations: None Summary of Care Provided: The patient is a 63 year old M with past medical history of CKD stage IV, hypertension, type II DM who last followed up with Dr. Nieto in 2017 comes in to the emergency department with abnormal blood work. Patient stopped following up with Dr. Nieto for unclear reasons. He has however been following up with his primary care doctor. He saw his primary care doctor a couple of days prior to admission and blood work was taken. He was called to go to the hospital when his potassium was said to be elevated as well as his BMP. Patient denied any chest pain or dizziness but admitted to dyspnea on exertion as well as orthopnea but no PND. He admits to bilateral lower extremity edema. Denied any fever or chills or diarrhea or any recent [id number] medications or diuretics. Patient was found to have a markedly elevated creatinine. Potassium was also elevated. Received Kayexalate x 2 on admission. He was also found to be short of breath and on oxygen, 2 L. His BNpep was more than 5000. His hemoglobin was 6.4 on admission. He was transfused 2 units of blood with Lasix after each blood transfusion. Patient received a right-sided tunneled dialysis catheter. He was started on dialysis. He continued to improve. Received 3 days of acute dialysis. Patient was set up for outpatient dialysis Thursday, , Thursday. His post-transfusion hemoglobin was 8.3. He will follow-up with his rehab nurse as scheduled. Subjective: The day of discharge, patient denied any shortness of breath or dizziness. Received dialysis. Objective: Physical Exam General: Alert, Oriented x3, Cooperative, No apparent distress HEENT: Atraumatic, PERRLA, EOMI, Normocephalic Oral: Moist Mucosa Neck: Supple Lungs: Normal air movement, Diminished, - - few basal crackles, improved Cardiovascular: Regular rate, Regular Rhythm, Normal S1, Normal S2, right-sided tunneled dialysis catheter Abdomen: Bowel Sounds Present, Soft, Non Tender, Non-Distended, No Hepato-splenomegaly Extremities: Edema - bilateral pedal +4 Skin: No rashes Musculoskeletal: No Tenderness to Palpation of Joints or Extremities Lymphatic: No Cervical, Supraclavicular, or Inguinal Adenopathy Neurological: Cranial nerves II-XII grossly intact, Neuro grossly intact Psych/Mental Status: Normal Affect, Appropriate - Physical Exam Vital Signs Temp Pulse Resp BP Pulse Ox 97.9 F 70 16 123/78 H 96 10/08/18 09:55 10/08/18 11:16 10/08/18 09:55 10/08/18 09:55 10/08/18 09:55 Oxygen Flow Rate (L/min) 2 Oxygen Delivery Method Room Air Weight: 84 kg Body Mass Index (BMI) 29.3 Intake and Output for Last 24 Hours 10/06/18 10/07/18 10/08/18 23:59 23:59 23:59 Intake Total 1723 / 1723 841.4 / 841.4 840 / 840 Output Total 1000 / 1000 250 / 250 475 / 475 Balance 723 / 723 591.4 / 591.4 365 / 365 Microbiology Past 72 Hours 10/05/18 10:35 Stool Occult Blood (JOSE) - Final Stool Laboratory Tests Past 24 Hrs 10/05/18 10/08/18 10/08/18 12:45 05:04 05:04 WBC 4.9 RBC 2.88 L Hgb 8.3 L Hct 25.8 L MCV 89.6 MCH 28.8 MCHC 32.2 RDW 16.4 H RDW Differential 53.9 H Plt Count 106 L MPV 9.5 Immature Gran % (Auto) 0.000 Neut % (Auto) 73.4 H Lymph % (Auto) 17.4 L [place] % (Auto) 6.5 Eos % (Auto) 2.5 Baso % (Auto) 0.2 Absolute Neuts (auto) 3.6 Absolute Lymphs (auto) 0.85 Total Counted Not Reportable Sodium 136 Potassium 4.3 Chloride 104 Carbon Dioxide 21.0 BUN 87 H Creatinine 7.33 H Estim Creat Clear Calc 9.89 Est GFR (MDRD) Af Amer 10 L Est GFR (MDRD) Non-Af 8 L BUN/Creatinine Ratio 11.9 Glucose 100 Calcium 7.1 L Phosphorus 8.0 H Albumin 2.1 L Crossmatch See Detail POC Glucose 10/08/18 10/08/18 10/07/18 11:08 06:56 21:56 POC Glucose 143 H 93 129 H 10/07/18 16:30 POC Glucose 117 H Discharge Diet: Carb Control Diet, Renal Diet Discharge Activity: Return to Normal Activity Home Medications: Medications to take at Discharge Atorvastatin Calcium [Lipitor] 10 mg PO QODAY 11/12/15 Carvedilol [Coreg (Beta Rosalba)] 25 mg PO BID 11/12/15 Amlodipine Besylate 10 mg PO DAILY 10/05/18 Sodium Bicarbonate 650 mg PO BID 10/05/18 Sodium Polystyrene Sulfonate [Kayexalate] 15 gm PO DAILY 10/05/18 Acetaminophen [Tylenol Tablet] 650 mg PO Q6H PRN PRN tablet 10/08/18 Sevelamer HCl 1,600 mg PO TID #90 tablet 10/08/18 Following Prescrptions Were Given to Patient: Sevelamer HCl 1,600 mg PO TID #90 tablet Primary Care Physician: Tayo Layton MD [Primary Care Provider] - Please follow up with your Primary Care Physician in: within 1-2 weeks Please Follow Up With: Liz Nieto DO When: as scheduled Disposition: Home Minutes spent on discharge:: 50 Patient Condition:: Stable Medical Necessity - Tobacco Use Smoking Status: Never smoker Tobacco Use: Non-smoker Meaningful Use Info Meaningful Use Diagnoses (Choose all that apply): None applicable Code Visit Inpatient E&M: 67654 Disch Hosp
[2018-10-08 15:41] LABS: Bedside Glucose 113 mg/dL (70-110)
[2018-10-08] MEDS: Calcitriol 0.25 MCG Capsule 0.5 MCG PO (16:03)
[2018-10-08] MEDS: Heparin 10,000 UNITS/10 ML Vial IV (18:39)
--- NOTE | 2018-10-08 19:03 | DIALYSIS ---
Hemodialysis completed x 3 hours. -2400ml off today. CVC ran without issues. post op CVC dressing was changed and CHG dressing applied today. report to Patricia at bedside.
[2018-10-08] MEDS: amLODIPine 10 MG Tablet PO (19:09)
--- NOTE | 2018-10-11 14:28 | CASEMGMT ---
UMER CM DC PHONE CALL DC DATE: 10/08/18 DC Disposition: Home LACE/STRATA: 03/08 Attempted call to home phone. No answer. Marissaloghalley BSN RN ACM
== END 2018-10-08 20:15 | disposition home or self-care (01) | DRG 674 ==
LOC: ED 10:48 → PCU 10:52
PROVIDERS: Anesthesiology; Hospitalist; Internal Medicine Nephrology; Surgery; Admitting Provider Internal Medicine; Emergency Provider Emergency Medicine; Family Provider Family Medicine; PCP Family Medicine; Visit Provider Internal Medicine
PROC: 0JH63XZ Insertion of Tunneled Vascular Access Device into Chest Subcutaneous Tissue and Fascia, Percutaneous Approach (ICD-10-PCS; principal; 2018-10-06 12:45)
DX: N17.9 Acute kidney failure, unspecified (principal); E87.2 Acidosis; I12.0 Hypertensive chronic kidney disease with stage 5 chronic kidney disease or end stage renal disease; D63.1 Anemia in chronic kidney disease; N18.6 End stage renal disease; N25.81 Secondary hyperparathyroidism of renal origin; E87.5 Hyperkalemia; E83.51 Hypocalcemia; E83.39 Other disorders of phosphorus metabolism; E11.22 Type 2 diabetes mellitus with diabetic chronic kidney disease; E87.70 Fluid overload, unspecified; E83.42 Hypomagnesemia; R06.89 Other abnormalities of breathing; R09.02 Hypoxemia; E78.5 Hyperlipidemia, unspecified; R74.9 Abnormal serum enzyme level, unspecified
CPT/HCPCS: 36415; 71045; 71046; 76000; 76770; 80048; 80069; 82274; 82306; 82962; 83036; 83540; 83550; 83735; 83880; 83970; 84132; 84484; 85025; 85610; 85730; 86850; 86900; 86920; 86922; 87340; 90937; 93005; 93970; 94640; 99285; J1756; J7030; J7040; P9016; A4216; C1750; C1769; G0257; J0610; J1940

== ENCOUNTER 2018-11-19 08:52 | Day surgery (SDC) | payer BC, SELFPAY ==
[2018-11-05 15:37] VITALS: BMI 29.3
--- NOTE | 2018-11-05 15:53 | HP_ITS ---
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 Is patient in pain?: No Allergies No Known Allergies Allergy (Verified 11/05/18 15:36) Medications Atorvastatin Calcium [Lipitor] 10 mg PO QODAY 11/12/15 [History Confirmed 11/05/18] Carvedilol [Coreg (Beta Rosalba)] 25 mg PO BID 11/12/15 [History Confirmed 11/05/18] Amlodipine Besylate 10 mg PO DAILY 10/05/18 [History Confirmed 11/05/18] Sodium Bicarbonate 650 mg PO BID 10/05/18 [History Confirmed 11/05/18] Sodium Polystyrene Sulfonate [Kayexalate] 15 gm PO DAILY 10/05/18 [History Confirmed 11/05/18] Acetaminophen [Tylenol Tablet] 650 mg PO Q6H PRN PRN tab 10/08/18 [Rx Confirmed 11/05/18] Sevelamer HCl 1,600 mg PO TID #90 tab 10/08/18 [Rx Confirmed 11/05/18] PFSH Medical History Acute on chronic kidney failure (Chronic) Anemia (Acute) Acute electrocardiogram changes (Acute) Hyperkalemia (Acute) Acute renal failure (Acute) Type II diabetes mellitus (Chronic) Hyperlipidemia (Chronic) Hypertension (Chronic) Surgical History S/P dialysis catheter insertion (Acute) Social History Smoking Status: Never smoker alcohol intake: never HPI HPI HPI: ISSSY BLUNT, is a 63 M who presents to the office today for HPI HPI Surgical H&P: Yes HPI: SISSY BLUNT, is a 63 M who presents to the office today for ongoing surgical consultation regarding creation of arteriovenous hemodialysis fistula. The patient had vein mapping performed when he was in the hospital on October 07, 2018. At that point he had an IV in the left upper extremity which caused an IV phlebitis at the antecubital space of the left upper extremity cephalic vein. His right upper extremity cephalic vein was borderline in the forearm and adequate in the upper arm. Bilateral basilic veins are adequate. He is right arm dominant. Urgently and acutely on October 06, 2018 I placed right internal jugular pre-curved 19 cm palindrome hemodialysis catheters for him. 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 Liz Nieto and he is getting hemodialysis routinely now locally in [place]. Since initiation of dialysis he is now much more clear of thought. He is aware to improve situation to why he is here and how we hopefully will continue to assist him. He does carry a past history of medical noncompliance ROS General General: No weight change, appetite, fatigue, colon cancer, breast cancer or weakness HEENT HEENT: No difficulty swallowing, eye injury, eye surgery, swollen glands or hoarseness Endo Endocrine: Yes diabetes mellitus; no thyroid disease, thyroid cancer, Hair loss, heat intolerance or cold intolerance Skin Skin: No rash or changing moles Breast Breast: No left breast lump, right breast lump, nipple discharge, breast pain, abnormal mammogram, abnormal US or breast enlargement Musc Musculoskeletal: No back problems, arthritis, rheumatoid arthritis, gout or joint pain Cardio Cardiovascular: Yes high blood pressure; no murmur, pacemaker, heart disease, atrial fibrillation, heart attack, heart stent, palpitations, shortness of breat with exertion or chest pain Psych Psychiatric: No depression, anxiety or hearing voices Resp Respiratory: No shortness of breath, No sleep apnea, No cough, No COPD, No asthma, No emphysema, No wheezing Gastro Gastrointestinal: No abdominal pain, No nausea or vomiting, No diarrhea, No constipation, No blood in stool, No acid reflux, No hemorrhoids, No ulcers, No gallbladder problem, No black,tarry stools Romaine Hematologic: No blood thinners, No blood disorders, No bleeding, No anemia, No blood clots Neuro Neurologic: No system reviewed and no additional complaints, except as docu, No as per HPI, No abnormal walking, No abnormal hearing, No abnormal movements, No abnormal speech, No behavioral changes, No burning sensations, No confusion, No seizure-like activity, No unsteadiness, No dizziness, No localized weakness, No frequent falls, No headache(s), No lack of coordination, No loss of vision, No memory loss, No numbness, No other visual disturbances, No radiating pain, No restless legs, No sensory deficit, No fainting, No tingling, No tremor(s), No weakness, No other Exam Const General: cooperative, comfortable, no acute distress Nutritional Appearance: average body habitus Orientation: alert, awake, oriented x3 HENMT Head: normal to inspection Teeth and gingiva: poor dentition Eyes General: appearance normal, both eyes and all related structures Chest Breast Palpation: No nipple discharge Resp Effort & Inspection: normal respiratory effort Auscultation: clear to auscultation bilaterally Cardio Rate: regular rate Rhythm: regular rhythm Heart Sounds: no murmurs GI Palpation: soft, no hepatosplenomegaly Extrem Other: 3+ left radial pulse. 3+ left brachial pulse. Ultrasound inspection of the left forearm suggests incomplete compressibility of the cephalic vein of the forearm suggesting partial or chronic thrombosis. It is of interest that the left upper arm demonstrates adequate diameter and compressibility of the cephalic vein. Psych Affect: normal affect Assessment & Plan Problems 1. Chronic renal failure, stage 5 N18.5 Plan 63-year-old gentleman now with chronic renal insufficiency. I clinically inspected his nondominant left upper extremity in the upper arm cephalic vein appears well we cannulated. There is actually left forearm cephalic vein that seems to be partially compressible. I recommended the patient a left upper arm brachiocephalic arteriovenous hemodialysis fistula creation. He is aware of the technique, benefit, risks, alternatives. We will schedule and proceed at his discretion. He has indwelling right IJ tunneled hemodialysis catheters which are currently being utilized. Sissy Carrasquillo M.D., F.A.C.S. Coding Level of Care Code Global Post Op Diagnoses Chronic renal failure, stage 5 N18.5 11/05/18 1553 <Electronically signed by Sissy Carrasquillo MD> Date Sissy Carrasquillo MD Patient re examined and no changes. Will proceed with fistula creation
--- NOTE | 2018-11-18 07:28 | EKG12_ITS ---
Test Reason : PRE OP Blood Pressure : / mmHG Vent. Rate : 072 BPM Atrial Rate : 072 BPM P-R Int : 164 ms QRS Dur : 080 ms QT Int : 406 ms P-R-T Axes : 039 -16 097 degrees QTc Int : 444 ms Normal sinus rhythm Nonspecific ST and T wave abnormality Abnormal ECG Confirmed by NJ PRITCHARD ([id number]), newspaper editor managing JONATHAN MANCILLA ([id number]) on 11/22/2018 2:52:40 PM Referred By: Karlos Carrasquillo Confirmed By:MARY PRITCHARD
[2018-11-18 08:47] LABS: Hematocrit 25.5 % (40-54); Hemoglobin 7.9 g/dl (13.0-16.5); Mean Corpuscular Hgb 29.4 pg (27.0-32.0); Mean Corpuscular Volume 94.8 fL (80-94); Mean Platelet Vol. 9.7 fl (6.2-12.0); Platelet Count 244 K/mm3 (150-450); RBC Distribution Width CV 14.2 % (11.6-14.6); RBC Distribution Width SD 45.9 fl (35.1-43.9); Red Blood Count 2.69 M/mm3 (4.6-6.2); White Blood Count 7.3 K/mm3 (4.4-11.0)
[2018-11-18 08:50] LABS: Scan Indicated on CBC? Y/N NO
[2018-11-18 09:11] LABS: Anion Gap 13 (5-15); BUN 71 mg/dL (7-18); BUN/Creat Ratio 11.1 RATIO (10-20); Calcium,Total 8.6 mg/dL (8.5-10.1); Chloride 102 mmol/L (98-107); Creatinine, Serum 6.37 mg/dL (0.70-1.30); EST Glomerular Filtration Rate 10 mL/min (>60); Est Glom Filt Rate - Afr Amer 12 mL/min (>60); Glucose 86 mg/dL (74-106); Potassium 4.1 mmol/L (3.5-5.1); Sodium Level 140 mmol/L (136-145)
[2018-11-19] VITALS (10 sets, daily range): BP systolic 125–166; BP diastolic 58–71; PULSE 61–67; RESP 16–18; TEMP 36.6–37.6; O2SAT 92–96; BMI 27.4
[2018-11-19 11:26] LABS: Bedside Glucose 87 mg/dL (70-110)
[2018-11-19] MEDS: Heparin Injection (Vial) 5,000 UNIT/ML VIAL 5000 UNIT (13:04)
--- NOTE | 2018-11-19 14:15 | DCINST_ITS ---
Discharge Diet: Renal Diet Discharge Activity: May Not Drive - for 2-3 days or while taking narcotic pain medications., May Shower, May Take a Tub Bath - in 5 days. Lifting Restrictions: 5 pounds Keep extremity elevated above heart level: - - Keep arm elevated above the heart level for 3 days. Additional Activity Instructions:: Exercise hand vigorously with a stress ball. Call your doctor if your incision/area has: Continuous Slow Oozing, Sudden Increased Bleeding - apply pressure and call your doctor., Increased Pain/ Swelling, Increased Redness, Foul Smelling Discharge Call your doctor if you observe: Fever of 101 or Higher Suture Line Care: Avoid Pulling/Pushing, Avoid Pinching/Bending Cleanse incision/area with: Keep Dressing Clean & Dry Additional Dressing/Incision Instructions:: Change or remove dressing in one day. May protect with a gauze bandaid. Allergies/Adverse Reactions: Allergies No Known Allergies Allergy (Verified 11/15/18 14:31) Medications to take at Discharge Atorvastatin Calcium [Lipitor] 10 mg PO DAILY 11/12/15 Carvedilol [Coreg (Beta Rosalba)] 25 mg PO BID 11/12/15 Amlodipine Besylate 10 mg PO DAILY 10/05/18 Sodium Bicarbonate 650 mg PO BID 10/05/18 Acetaminophen [Tylenol Tablet] 650 mg PO Q6H PRN PRN tab 10/08/18 Doxazosin Mesylate [Cardura] 1 mg PO DAILY 11/15/18 Hydrocodone Bitart/Apap 5-325 [[place] 5MG-325MG] 1 tablet PO Q6H PRN PRN 2 Days #5 tablet 11/19/18 The following prescriptions were given: Hydrocodone Bitart/Apap 5-325 [[place] 5MG-325MG] 1 tablet PO Q6H PRN PRN 2 Days #5 tablet PRN Reason: Pain Primary Care Physician: Tayo Layton MD [Primary Care Provider] - Test Results: Test results from this visit will be discussed in further detail at your follow- up appointment, if applicable. Please Follow Up With: Karlos Carrasquillo MD - [phone] When: Call to make an appointment for suture removal and follow up in 1 week.
--- NOTE | 2018-11-19 14:15 | PCM.OPRPT ---
Problem List (1) Chronic renal failure, stage 5 Status: Chronic Report of Operation Date of Procedure: 11/19/18 Pre-Operative Diagnosis: Stage V chronic renal failure Post-Operative Diagnosis: Same Surgery/Procedure Performed:: Left upper extremity brachiocephalic arteriovenous hemodialysis fistula creation Description of Surgical Findings:: Timeout and informed consent was obtained. 63-year-old male was taken to the operating placement tableUnderwent monitored anesthesia care. Left upper extremity was sterilely prepped draped. 1% lidocaine mixed 50-50 with 0.5% Marcaine was used as local anesthetic. A total of 35 cc was used. Ultrasound was used to identify the course of the cephalic vein in the distal left upper arm close to the antecubital space and it was mapped. Local was instilled. An oblique incision was made in the distal left upper arm and sharp and blunt dissection was used to dissect free the distal 8 cm of the cephalic vein. Side branches were secured with hemoclips. Then sharp blunt dissection was used to identify the brachial artery. Circumferential control was obtained. The patient received 9000 units of heparin intravenously. Peripheral vascular clamps were placed on the brachial artery. The vein was ligated distally with 3-0 Vicryl. An arteriotomy was created and extended with Adorno scissors. A end-to-side anastomosis was created with a running 6-0 Prolene.. Hemostasis was nicely intact blood loss throughout the procedure was extraordinarily minimal. There was a good 3+ radial pulse. The fistula had a good pulse thrill and bruit. The wound was closed with a deep layer of interrupted 3-0 Vicryl and then a running septic or 4-0 Monocryl. Steri-Strips Telfa tape dressings applied. Sponge and instrument and needle counts were reported the surgeon be correct. Specimens none. Drains none. Blood loss very minimal. He was taken to the recovery room in satisfactory condition with a viable left hand and a nicely functioning fistula. Karlos Carrasquillo M.D., F.A.C.S. Type of Anesthesia:: Local MAC Anesthesiologist: Sohail Stoddard
[2018-11-19] MEDS: Bupivacaine Mpf 0.5% 30 ML VIAL (14:18)
== END 2018-11-19 17:07 | disposition home or self-care (01) ==
LOC: SDC 08:53 → AC 11:39
PROVIDERS: Family Provider Family Medicine; PCP Family Medicine; Referring Provider Surgery; Visit Provider Surgery
PROC: (CPT 36821; principal; 2018-11-19 12:15)
DX: I13.11 Hypertensive heart and chronic kidney disease without heart failure, with stage 5 chronic kidney disease, or end stage renal disease (principal); E11.22 Type 2 diabetes mellitus with diabetic chronic kidney disease; N18.5 Chronic kidney disease, stage 5; Z99.2 Dependence on renal dialysis; E87.5 Hyperkalemia; E78.5 Hyperlipidemia, unspecified; Z79.899 Other long term (current) drug therapy
CPT/HCPCS: 36821; 36415; 80048; 82962; 85027; 93005; J7030; J7120

== ENCOUNTER → 2019-11-07 | Outpatient (CLI) | payer BC, SELFPAY ==
[2019-11-07 13:08] VITALS: BMI 28.1
[2019-11-07 14:26] LABS: Absolute Neutrophil Count 3.6 X10^3/uL (2.0-7.7); Basophil# 0.02 X10^3/uL; Basophil% 0.3 % (0-1); Eosinophil# 0.13 X10^3/uL; Eosinophils% 2.1 % (0-5); Hematocrit 29.3 % (40-54); Lymphocyte % 29.4 % (19-41); Mean Corp Hgb Conc 34.1 g/dL (32-36); Mean Corpuscular Hgb 34.8 pg (27.0-32.0); Mean Corpuscular Volume 102.1 fL (80-94); Mean Platelet Vol. 9.6 fl (6.2-12.0); Monocyte# 0.58 X10^3/uL; Monocyte% 9.5 % (0-10); NRBC Flagged by Analyzer 0 % (0-5); Neutrophil # 3.59 X10^3/uL (2.7-7.7); Neutrophil % 58.5 % (47-70); Platelet Count 169 K/mm3 (150-450); RBC Distribution Width CV 14.5 % (11.6-14.6); RBC Distribution Width SD 53.7 fl (35.1-43.9); Red Blood Count 2.87 M/mm3 (4.6-6.2); White Blood Count 6.1 K/mm3 (4.4-11.0)
[2019-11-07 14:40] LABS: Anion Gap 6 (5-15); BUN 63 mg/dL (7-18); BUN/Creat Ratio 5.9 RATIO (10-20); Calcium,Total 9.3 mg/dL (8.5-10.1); Chloride 101 mmol/L (98-107); EST Glomerular Filtration Rate 5 mL/min (>60); Est Glom Filt Rate - Afr Amer 6 mL/min (>60); Glucose 148 mg/dL (74-106); Potassium 4.3 mmol/L (3.5-5.1); Sodium Level 139 mmol/L (136-145)
== END | disposition home or self-care (01) ==
LOC: PAVLAB 13:59
PROVIDERS: PCP Family Medicine; Referring Provider Physician Assistant; Visit Provider Physician Assistant
DX: N18.5 Chronic kidney disease, stage 5 (principal)
CPT/HCPCS: 36415; 80048; 85025

== ENCOUNTER 2019-11-18 09:26 | Day surgery (SDC) | payer BC, SELFPAY ==
--- NOTE | 2019-11-07 03:40 | HP_ITS ---
Intake Vital Signs 11/07/19 Height 5 ft 7 in 11/07/19 Weight: 180 lb 11/07/19 BP 153/69 H 11/07/19 Blood Pressure Location Rt brachial 11/07/19 Position Sitting 11/07/19 Respiration 18 11/07/19 BMI 27.4 Intake Visit Reasons: Low Access Flows 25 % decrease Chief Complaint: Abnormal labs Wrapper Stripper Required: No Is patient in pain?: No Allergies No Known Allergies Allergy (Verified 11/07/19 13:08) Medications Atorvastatin Calcium [Lipitor] 10 mg PO DAILY 11/12/15 [History Confirmed 11/07/19] Carvedilol [Coreg (Beta Rosalba)] 25 mg PO BID 11/12/15 [History Confirmed 11/07/19] Amlodipine Besylate 10 mg PO DAILY 10/05/18 [History Confirmed 11/07/19] Sodium Bicarbonate 650 mg PO BID 10/05/18 [History Confirmed 11/07/19] Acetaminophen [Tylenol Tablet] 650 mg PO Q6H PRN PRN tab 10/08/18 [Rx Confirmed 11/07/19] Doxazosin Mesylate [Cardura] 1 mg PO DAILY 11/15/18 [History Confirmed 11/07/19] PFSH Medical History Chronic renal failure, stage 5 (Chronic) Acute on chronic kidney failure (Chronic) Anemia (Acute) Acute electrocardiogram changes (Acute) Hyperkalemia (Acute) Acute renal failure (Acute) Type II diabetes mellitus (Chronic) Hyperlipidemia (Chronic) Hypertension (Chronic) Surgical History S/P arteriovenous (AV) fistula creation (Acute) S/P dialysis catheter insertion (Acute) Social History (Updated 11/07/19 @ 15:40 by Mercedes Palma PA-C) Smoking Status: Never smoker alcohol intake: never HPI HPI HPI: SISSY BLUNT, is a 64 M who presents to the office today for HPI HPI Surgical H&P: Yes HPI: SISSY BLUNT, is a 64 M who presents to the office today for decreased flows. Dr. Carrasquillo performed a left upper extremity brachiocephalic arteriovenous hemodialysis creation on 11/19/2018. Patient has not had any intervention on the fistula since his creation. Patient is unsure how long his fistula has been declining. He denies pain or other concerns at this time with his fistula. He currently dialyzes T, Th and Sat. He is not currently on any blood thinners. He denies any difficulty with anesthesia previously. 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 ROS General General: No weight change, appetite, fatigue, colon cancer, breast cancer or weakness HEENT HEENT: No difficulty swallowing, eye injury, eye surgery, swollen glands or hoarseness Endo Endocrine: Yes diabetes mellitus; no thyroid disease, thyroid cancer, Hair loss, heat intolerance or cold intolerance Skin Skin: No rash or changing moles Breast Breast: No left breast lump, right breast lump, nipple discharge, breast pain, abnormal mammogram, abnormal US or breast enlargement Musc Musculoskeletal: No back problems, arthritis, rheumatoid arthritis, gout or joint pain Cardio Cardiovascular: Yes high blood pressure; no murmur, pacemaker, heart disease, atrial fibrillation, heart attack, heart stent, palpitations, shortness of breat with exertion or chest pain Psych Psychiatric: No depression, anxiety or hearing voices Resp Respiratory: No shortness of breath, No sleep apnea, No cough, No COPD, No asthma, No emphysema, No wheezing Gastro Gastrointestinal: No abdominal pain, No nausea or vomiting, No diarrhea, No constipation, No blood in stool, No acid reflux, No hemorrhoids, No ulcers, No gallbladder problem, No black,tarry stools Romaine Hematologic: No blood thinners, No blood disorders, No bleeding, No anemia, No blood clots Neuro Neurologic: No weakness Exam Const General: cooperative, healthy appearing, comfortable, no acute distress [facility] Head: normal to inspection Eyes General: appearance normal, both eyes and all related structures Neck Neck: normal visual inspection Neck mass: No Chest Breast Palpation: No nipple discharge Resp Effort & Inspection: normal respiratory effort Auscultation: clear to auscultation bilaterally Cardio Rate: regular rate Rhythm: regular rhythm Heart Sounds: no murmurs GI Inspection: normal to inspection Palpation: soft Auscultation: normal bowel sounds Skin General: no rashes or lesions noted Neuro General: no focal motor deficits, CN's II-XI intact bilaterally Extrem Other: Left upper extremity AV fistula- good pulse, bruit and thrill. May be slightly diminished between needle insertion sites. Psych Appearance: grossly normal Affect: normal affect Assessment & Plan Problems 1. Problem with dialysis access, initial encounter T82.009K Plan Dr. Carrasquillo will plan to perform a non-urgent left upper extremity fistulogram. Procedure details, risks and benefits have been explained. Patient is not on any blood thinners. Patient has had the opportunity to ask and have questions answered. Patient verbally understands and agrees with the plan. Orders Orders: Basic Metabolic Profile (BMP) Today N18.5 CBC W/Diff, Automated Today N18.5 Coding Level of Care Code Off vis,est,level 3 Diagnoses Problem with dialysis access, initial encounter T82.834Q ??Encounter type: initial encounter 11/07/19 1540 <Electronically signed by Mercedes acosta PA-C> Date _ Mercedes Palma PA-C
[2019-11-07 13:08] VITALS: BMI 28.1
[2019-11-17 10:27] VITALS: BMI 28.1
--- NOTE | 2019-11-18 10:50 | PCM.HP.BLA ---
Problem List (1) Problem with dialysis access Status: Acute Qualifiers: Encounter type: initial encounter Qualified Code(s): T82.898A - Other specified complication of vascular prosthetic devices, implants and grafts, initial encounter History and Physical Date of Admission: 11/18/19 Visit Reasons: Low Access Flows 25 % decrease Chief Complaint: Abnormal labs Master Sheet Clerk Required: No Is patient in pain?: No Allergies No Known Allergies Allergy (Verified 11/07/19 13:08) Medications Atorvastatin Calcium [Lipitor] 10 mg PO DAILY 11/12/15 [History Confirmed 11/07/19] Carvedilol [Coreg (Beta Rosalba)] 25 mg PO BID 11/12/15 [History Confirmed 11/07/19] Amlodipine Besylate 10 mg PO DAILY 10/05/18 [History Confirmed 11/07/19] Sodium Bicarbonate 650 mg PO BID 10/05/18 [History Confirmed 11/07/19] Acetaminophen [Tylenol Tablet] 650 mg PO Q6H PRN PRN tab 10/08/18 [Rx Confirmed 11/07/19] Doxazosin Mesylate [Cardura] 1 mg PO DAILY 11/15/18 [History Confirmed 11/07/19] PFSH Medical History Chronic renal failure, stage 5 (Chronic) Acute on chronic kidney failure (Chronic) Anemia (Acute) Acute electrocardiogram changes (Acute) Hyperkalemia (Acute) Acute renal failure (Acute) Type II diabetes mellitus (Chronic) Hyperlipidemia (Chronic) Hypertension (Chronic) Surgical History S/P arteriovenous (AV) fistula creation (Acute) S/P dialysis catheter insertion (Acute) Social History (Updated 11/07/19 @ 15:40 by Mercedes Palma PA-C) Smoking Status: Never smoker alcohol intake: never HPI HPI HPI: SISSY BLUNT, is a 64 M who presents to the office today for HPI HPI Surgical H&P: Yes HPI: SISSY BLUNT, is a 64 M who presents to the office today for decreased flows. Dr. Carrasquillo performed a left upper extremity brachiocephalic arteriovenous hemodialysis creation on 11/19/2018. Patient has not had any intervention on the fistula since his creation. Patient is unsure how long his fistula has been declining. He denies pain or other concerns at this time with his fistula. He currently dialyzes T, Th and Sat. He is not currently on any blood thinners. He denies any difficulty with anesthesia previously. 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 ROS General General: No weight change, appetite, fatigue, colon cancer, breast cancer or weakness HEENT HEENT: No difficulty swallowing, eye injury, eye surgery, swollen glands or hoarseness Endo Endocrine: Yes diabetes mellitus; no thyroid disease, thyroid cancer, Hair loss, heat intolerance or cold intolerance Skin Skin: No rash or changing moles Breast Breast: No left breast lump, right breast lump, nipple discharge, breast pain, abnormal mammogram, abnormal US or breast enlargement Musc Musculoskeletal: No back problems, arthritis, rheumatoid arthritis, gout or joint pain Cardio Cardiovascular: Yes high blood pressure; no murmur, pacemaker, heart disease, atrial fibrillation, heart attack, heart stent, palpitations, shortness of breat with exertion or chest pain Psych Psychiatric: No depression, anxiety or hearing voices Resp Respiratory: No shortness of breath, No sleep apnea, No cough, No COPD, No asthma, No emphysema, No wheezing Gastro Gastrointestinal: No abdominal pain, No nausea or vomiting, No diarrhea, No constipation, No blood in stool, No acid reflux, No hemorrhoids, No ulcers, No gallbladder problem, No black,tarry stools Romaine Hematologic: No blood thinners, No blood disorders, No bleeding, No anemia, No blood clots Neuro Neurologic: No weakness Exam Const General: cooperative, healthy appearing, comfortable, no acute distress [facility] Head: normal to inspection Eyes General: appearance normal, both eyes and all related structures Neck Neck: normal visual inspection Neck mass: No Chest Breast Palpation: No nipple discharge Resp Effort & Inspection: normal respiratory effort Auscultation: clear to auscultation bilaterally Cardio Rate: regular rate Rhythm: regular rhythm Heart Sounds: no murmurs GI Inspection: normal to inspection Palpation: soft Auscultation: normal bowel sounds Skin General: no rashes or lesions noted Neuro General: no focal motor deficits, CN's II-XI intact bilaterally Extrem Other: Left upper extremity AV fistula- good pulse, bruit and thrill. May be slightly diminished between needle insertion sites. Psych Appearance: grossly normal Affect: normal affect Assessment & Plan Problems 1. Problem with dialysis access, initial encounter T82.798Z Plan Dr. Carrasquillo will plan to perform a non-urgent left upper extremity fistulogram. Procedure details, risks and benefits have been explained. Patient is not on any blood thinners. Patient has had the opportunity to ask and have questions answered. Patient verbally understands and agrees with the plan. Orders Orders: Basic Metabolic Profile (BMP) Today N18.5 CBC W/Diff, Automated Today N18.5 Coding Level of Care Code Off vis,est,level 3 Diagnoses Problem with dialysis access, initial encounter T82.898A ??Encounter type: initial encounter 11/07/19 1540 <Electronically signed by Mercedes Palma PA-C> Date Mercedes Palma PA-C Cosigner Signature: Date (if applicable) CC: Liz Nieto DO; Sissy Carrasquillo MD ~ I have re-examined the patient. There are no clinical changes since date of exam. The patient is aware that this procedure is performed during the COVID-19 pandemic. He is aware that the [facility] administration has suggested a low local incidence. He agrees to proceed as noted.
--- NOTE | 2019-11-18 11:52 | OP.PCM_ITS ---
Problem List (1) Problem with dialysis access Status: Acute Qualifiers: Encounter type: initial encounter Qualified Code(s): T82.898A - Other specified complication of vascular prosthetic devices, implants and grafts, initial encounter Report of Operation Date of Procedure: 11/18/19 Pre-Operative Diagnosis: Diminished flow left upper extremity brachial to cephalic arteriovenous hemodialysis fistula Post-Operative Diagnosis: Initial flow left upper extremity brachiocephalic arteriovenous hemodialysis fistula with cephalic arch critical stenosis Surgery/Procedure Performed:: Left upper extremity fistulogram with 6 x 4 and subsequent 8 x 4 ConQuest angioplasty central venous system just extending into the subclavian vein Description of Surgical Findings:: Timeout and informed consent was obtained. 64-year-old gentleman was taken to the special procedures lab. He had eaten breakfast so no IV sedative was given. He was placed supine on the table. The left extremity sterilely prepped and draped. Ultrasound was used to inspect the left upper arm brachiocephalic arteriovenous hemodialysis fistula. The anastomosis and proximal portion of the fistula appeared to be widely patent. Under ultrasound guidance 2% lidocaine was instilled as a local anesthetic. Antegrade with flow closer to the antecubital space a micropuncture needle was placed. Micropuncture wire inserted. 6 [place] short sheath was inserted. Using Isovue contrast a fistulogram was obtained of the left upper arm. This demonstrated high-grade 9 0% stenosis at the cephalic arch. An 035 angled Glidewire was advanced. Initially a 6 x 4 ConQuest balloon was inserted and balloon angioplasty was performed for 3 minutes. Subsequent contrast study demonstrated unfortunately residual stenosis at the area of peak stenosis. So a 8 x 4 ConQuest balloon was inserted. Whereas the 6 x 4 ConQuest could be insufflated to 35 mmHg pressure the patient only tolerated 12 mm direct pressure with the 8 x 4 ConQuest balloon. That was held for 1 minute. The balloon was released and inspection now however revealed resolution of the area of stenosis of the cephalic arch. While the balloons were inflated retrograde views were obtained of the anastomotic area. Because of tortuosity in this area clean visualization could not be achieved however it appeared to be widely patent. Balloon was removed sheath was removed and a U suture of 4-0 nylon was placed for hemostasis. Blood loss minimal. Contrast used 40 cc. No apparent complication. Images demonstrate a left upper arm brachiocephalic arteriovenous hemodialysis fistula. There is collateralized venous flow within approximately 6 cm from the anastomosis. There is some slight aneurysmal change of the vein in the very proximal portion of the fistula in the distal left upper arm. There is good cephalic and basilic vein outflow. There is high-grade 90% stenosis at the cephalic arch close to the apex of the arch. There is mild diffuse disease involving the cephalic vein that extends all the way down to the subclavian vein. With the both balloon slightly extending into the subclavian vein at the completion the origin of the cephalic vein at the subclavian vein juncture is widely patent as is the entire cephalic arch. There appears to be resolution of the area of high-grade stenosis. Impression successfully treated left upper arm brachiocephalic AV fistula with resolved central venous stenosis. The patient has been instructed that if repeat stenosis occurs then I would a nticipate likely 8 x 4 ConQuest angioplasty followed by 8 x 5 Viabahn stent grafting. Karlos Carrasquillo M.D., F.A.C.S. Type of Anesthesia:: Local
== END 2019-11-18 12:58 | disposition home or self-care (01) ==
LOC: CLSP 09:27
PROVIDERS: PCP Family Medicine; Referring Provider Surgery; Visit Provider Surgery
DX: T82.898A Other specified complication of vascular prosthetic devices, implants and grafts, initial encounter (principal); I12.0 Hypertensive chronic kidney disease with stage 5 chronic kidney disease or end stage renal disease; E11.22 Type 2 diabetes mellitus with diabetic chronic kidney disease; N18.5 Chronic kidney disease, stage 5; Z99.2 Dependence on renal dialysis; D63.1 Anemia in chronic kidney disease; E78.5 Hyperlipidemia, unspecified; Z79.899 Other long term (current) drug therapy; Z11.59 Encounter for screening for other viral diseases
CPT/HCPCS: 36902; 76937; 87635; 93005; G2023; Q9967; C1725; C1769; U0002

== ENCOUNTER 2020-01-21 16:08 | Emergency (ER) | payer BC, SELFPAY ==
[2019-11-17 10:27] VITALS: BMI 28.1
[2020-01-21 16:10] VITALS: BP 138/77; PULSE 91; RESP 18; TEMP 37.7; O2SAT 94; BMI 27.3
--- NOTE | 2020-01-21 16:30 | CT_ITS ---
STUDY: CT BRAIN WITHOUT CONTRAST REASON FOR EXAM: Male, 64 years old. Dizziness and fall after dialysis. Laceration to back of head. RADIATION DOSAGE (If Supplied By Facility): CTDIvol = ( 44.99 ) mGy, DLP = ( 796.11 ) mGycm TECHNIQUE: Transaxial CT imaging of the brain was performed without administration of intravenous contrast material. Individualized dose optimization techniques were used for this CT. COMPARISON: No relevant priors. FINDINGS: There is a subcutaneous hematoma over the left posterior parietal region. Normal calvarium. There is increased density within the parenchyma of the right inferior temporal lobe consistent with parenchymal hemorrhage. The largest area measures 2 x 1.5 x 0.8 cm. There is also a small focus of parenchymal hemorrhage in the left temporal lobe measuring 1.2 x 0.4 x 0.8 cm there is also parenchymal hemorrhage along the base of the right frontal lobe measuring 0.6 x 0.8 x 1.2 cm. Normal size ventricles and extra-axial spaces for the patient''s age. Normal white matter tracts of the cerebral hemispheres. There are small punctate calcifications of the basal ganglia which are seen in the aging brain as a normal variant. Normal brainstem. Normal cerebellum. There are no findings of an acute ischemic infarction. Normal visualized paranasal sinuses. CT/Brain/Head without Contrast IMPRESSION: 1. A small parenchymal hemorrhages along the inferior aspects of the right frontal and bilateral temporal lobes. This is most marked in the right temporal lobe. 2. ... Subcutaneous hematoma over the left posterior parietal region. N.B. : The above information has been verbally conveyed by Joseph Hurst DO to Urvashi George MD, on 01/21/2020 17:41:43 (ET). Electronically Signed: Joseph Hurst DO at 17:44 EDT Tel [phone], Service support ,
--- NOTE | 2020-01-21 16:31 | EKG12_ITS ---
Test Reason : SYNCOPE Blood Pressure : / mmHG Vent. Rate : 081 BPM Atrial Rate : 081 BPM P-R Int : 170 ms QRS Dur : 078 ms QT Int : 388 ms P-R-T Axes : 030 -40 075 degrees QTc Int : 450 ms Normal sinus rhythm Left axis deviation Abnormal ECG Confirmed by YUE CISNEROS, RENETTA ([id number]), assignment desk editor KLARISSA CLARK ([id number]) on 01/24/2020 9:28:17 AM Referred By: OLIVIA Confirmed By:RENETTA TURNER MD
--- NOTE | 2020-01-21 16:32 | CT_ITS ---
STUDY: CT CERVICAL SPINE WITHOUT CONTRAST REASON FOR EXAM: Male, 64 years old. Dizziness and fall following dialysis. Laceration back of head. RADIATION DOSAGE (If Supplied By Facility): CTDIvol = ( 27.24 ) mGy, DLP = ( 573.16 ) mGycm TECHNIQUE: High resolution transaxial imaging was performed without contrast material. Sagittal and coronal images were reconstructed. Individualized dose optimization techniques were used for this CT. COMPARISON: None FINDINGS: Normal craniovertebral junction. There are degenerative changes of the anterior atlantoaxial articulation. Normal odontoid process. Normal cervical lordosis. Normal vertebral bodies and posterior osseous elements. C2-3: Normal endplates. Normal disc height and morphology. Mild facet and uncovertebral joint degenerative change. Normal central canal and intervertebral neuroforamina. C3-4: Normal endplates. Mild loss of disc height. Facet and uncovertebral joint degenerative change. Normal central canal and intervertebral neuroforamina. C4-5: Anterior endplate spondylosis. Loss of disc height. Facet and uncovertebral joint degenerative change.. Normal central canal. Mild narrowing of the right intervertebral neuroforamen. C5-6: Loss of disc height with endplate spondylosis. Facet vertebral joint degenerative change. Normal central canal period narrowing of bilateral intervertebral neuroforamina. C6-7: Loss of disc height with endplate spondylosis. Facet vertebral joint degenerative change. Normal central canal period narrowing of bilateral intervertebral neuroforamina. C7-T1: Normal endplates. Loss of disc height. Facet joint degenerative change.. Normal central canal and intervertebral neuroforamina. Normal visualized soft tissue structures. CT/Spine Cervical without Contras IMPRESSION: Degenerative changes of the cervical spine. There is no evidence of acute fracture or subluxation. Electronically Signed: Joseph Hurst DO at 17:46 EDT Tel [phone], Service support ,
[2020-01-21] MEDS: Ondansetron 4 MG/2 ML Vial IV ×2 (16:55→18:09)
--- NOTE | 2020-01-21 16:55 | RAD_ITS ---
STUDY: X-RAY CHEST REASON FOR EXAM: Male, 64 years old. Fall with laceration to back of the head. Dizziness following dialysis. TECHNIQUE: Single AP portable view of the chest. COMPARISON: October 07, 2019 FINDINGS: Is absence of right jugular hemodialysis catheter is seen on the prior study. There is improved inspiratory effort. The lungs are clear. The vascular congestion and edema seen in the previous study is resolved. There is no demonstrated pleural abnormality. Normal size heart. Normal mediastinum and jules. Normal visualized pulmonary arteries. Normal visualized aortic arch and descending thoracic aorta. There are diffuse degenerative changes of the visualized thoracic spine. Normal visualized ribs, clavicles, and shoulders. There is no demonstrated abnormality of the visualized soft tissue structures of the upper abdomen. RAD/Chest 1 View (Portable) IMPRESSION: 1. No acute cardiopulmonary disease. 2. Absence of the hemodialysis catheter present on the prior study. Electronically Signed: Joseph Hurst DO at 17:26 EDT Tel [phone], Service support ,
[2020-01-21 17:10] LABS: Absolute Lymphocyte Count 0.63 X10^3/uL (0.83-4.51); Absolute Neutrophil Count 6.9 X10^3/uL (2.0-7.7); Basophil# 0.02 X10^3/uL; Basophil% 0.2 % (0-1); Eosinophil# 0.03 X10^3/uL; Eosinophils% 0.4 % (0-5); Hematocrit 35.9 % (40-54); Lymphocyte # 0.63 X10^3/ul (4.0); Lymphocyte % 7.7 % (19-41); Mean Corp Hgb Conc 33.4 g/dL (32-36); Mean Corpuscular Hgb 35.8 pg (27.0-32.0); Mean Corpuscular Volume 107.2 fL (80-94); Mean Platelet Vol. 9.8 fl (6.2-12.0); Monocyte# 0.58 X10^3/uL; Monocyte% 7.1 % (0-10); NRBC Flagged by Analyzer 0 % (0-5); Neutrophil # 6.85 X10^3/uL (2.7-7.7); Neutrophil % 84.2 % (47-70); Platelet Count 157 K/mm3 (150-450); RBC Distribution Width CV 14.5 % (11.6-14.6); Red Blood Count 3.35 M/mm3 (4.6-6.2); White Blood Count 8.1 K/mm3 (4.4-11.0)
[2020-01-21 17:17] LABS: Partial Thromboplast Time 26.7 Seconds (24.1-36.2); Prothrombin Time (Protime)PT. 13.1 SECONDS (11.7-14.9)
[2020-01-21 17:31] LABS: Anion Gap 7 (5-15); BUN 24 mg/dL (7-18); BUN/Creat Ratio 4.2 RATIO (10-20); Calcium,Total 9.2 mg/dL (8.5-10.1); Chloride 96 mmol/L (98-107); EST Glomerular Filtration Rate 11 mL/min (>60); Est Glom Filt Rate - Afr Amer 13 mL/min (>60); Estimated Creatinine Clearance 12.56 ml/min; Glucose 140 mg/dL (74-106); Potassium 5.1 mmol/L (3.5-5.1); Sodium Level 135 mmol/L (136-145)
[2020-01-21 17:34] VITALS: BP 151/91
--- NOTE | 2020-01-21 17:47 | ED.VIS.GEN ---
History of Present Illness Chief Complaint: Fall Informant: Patient Onset: Today Narrative: Patient is a 64-year-old male with history of end-stage renal disease on hemodialysis presenting after syncopal episode. Patient was coming home from dialysis with he collapsed outside. It was unwitnessed but his heard a thud and found him on the ground. Patient does not remember what happened. He did hit his head when he fell. His helped him back up and they went inside. He rested but continued to feel nauseous and unwell. They came to the emergency room for further evaluation. Patient denies any vision changes. He is complained of associated headache. He denies any vomiting or change in bowel habits. He normally has dialysis Thursday and Thursday. He had a full session today. No other complaints at this time. Past Medical History - Allergies and Home Meds Allergies/Adverse Reactions: Allergies No Known Allergies Allergy (Verified 11/07/19 13:08) Primary Care Physician: Tayo Layton MD [Primary Care Provider] - Past Medical History: - - End-stage renal disease on hemodialysis, chronic anemia, type 2 diabetes mellitus, hypertension, hyperlipidemia Surgical History: noncontributory Lives: Spouse/ Significant Other Smoking Status: Never smoker - Family History Maternal Family History: Reports: Diabetes Paternal Family History: Reports: Hypertension, - Review of Systems General: Reports: Malaise. Denies: Chills, Fever, Sweats Eyes: Denies: Visual changes - bilaterally, Diplopia ENT: Denies: Rhinorrhea, Sore throat Cardiovascular: Denies: Chest pain, Palpitations Respiratory: Denies: Dyspnea, Cough, Dyspnea on exertion Gastrointestinal: Reports: Nausea. Denies: Abdominal pain, Vomiting, Diarrhea, Melena, Hematochezia Genitourinary: Denies: Dysuria, Hematuria, Frequency Musculoskeletal: Denies: Back pain, Extremity Pain Skin: Reports: Wounds - left scalp . Denies: Rash Neurological: Reports: Headache. Denies: Weakness, Numbness Physical Exam Vital Signs/Narrative: Vital Signs Temp Pulse Resp BP Pulse Ox 01/21/20 17:34 151/91 H 01/21/20 16:10 99.9 F H 91 18 138/77 H 94 Inital Vital Signs reviewed: Yes General: Well nourished, Well developed, No Acute Distress Head: Normocephalic, Trauma - Hematoma left posterior scalp, overlying small abrasion Eyes: Perrl, EOMI ENT: Moist mucous membranes, No rhinorrhea, - - Bilateral hemotympanum Neck: Supple, Nontender, - - No midline tenderness, painless range of motion. Cardiovascular: Regular rate, Regular rhythm, No murmurs Respiratory: No distress, CTA bilaterally, Chest nontender Abdomen: Soft, Nontender, Nondistended, Normal bowel sounds Back: Nontender, Normal Inspection Extremities: Nontender, No edema Skin: Normal color, No rash Neurological: Alert, Oriented x3, Cranial nerves II-XII grossly intact, Normal Strength, Normal Sensation, - - NIH=0 Psychological: Normal affect, Normal Mood Diagnostic/Tx/Re-eval Clinical Impression(s) from Imaging Studies Brain CT 01/21/20 16:30 IMPRESSION: 1. A small parenchymal hemorrhages along the inferior aspects of the right frontal and bilateral temporal lobes. This is most marked in the right temporal lobe. 2. ... Subcutaneous hematoma over the left posterior parietal region. N.B. : The above information has been verbally conveyed by Joseph Hurst DO to Urvashi Geroge MD, on 01/21/2020 17:41:43 (ET). Electronically Signed: Joseph Hurst DO at 17:44 EDT Tel [phone], Service support , ADDENDUM: 01/21/20 1751 IMPRESSION: 1. A small parenchymal hemorrhages along the inferior aspects of the right frontal and bilateral temporal lobes. This is most marked in the right temporal lobe. 2. ... Subcutaneous hematoma over the left posterior parietal region. N.B. : The above information has been verbally conveyed by Joseph Hurst DO to Urvashi George MD, on 01/21/2020 17:41:43 (ET). Electronically Signed: Joseph Hurst DO at 17:44 EDT Tel [phone], Service support , Cervical Spine CT 01/21/20 16:32 IMPRESSION: Degenerative changes of the cervical spine. There is no evidence of acute fracture or subluxation. Electronically Signed: Joseph Hurst DO at 17:46 EDT Tel [phone], Service support , Chest X-Ray 01/21/20 16:55 IMPRESSION: 1. No acute cardiopulmonary disease. 2. Absence of the hemodialysis catheter present on the prior study. Electronically Signed: Joseph Hurst DO at 17:26 EDT Tel [phone], Service support , Laboratory Data 01/21/20 01/21/20 01/21/20 17:00 17:00 17:00 WBC 8.1 RBC 3.35 L Hgb 12.0 L Hct 35.9 L MCV 107.2 H MCH 35.8 H MCHC 33.4 RDW Std Deviation 56.0 H RDW Coeff of Jon 14.5 Plt Count 157 MPV 9.8 Immature Gran % (Auto) 0.400 Neut % (Auto) 84.2 H Lymph % (Auto) 7.7 L [place] % (Auto) 7.1 Eos % (Auto) 0.4 Baso % (Auto) 0.2 Absolute Neuts (auto) 6.9 Absolute Lymphs (auto) 0.63 L Nucleated RBC % 0 PT 13.1 INR 1.0 APTT 26.7 Sodium 135 L Potassium 5.1 Chloride 96 L Carbon Dioxide 32.0 Anion Gap 7 BUN 24 H Creatinine 5.70 H Estim Creat Clear Calc 12.56 Est GFR (MDRD) Af Amer 13 L Est GFR (MDRD) Non-Af 11 L BUN/Creatinine Ratio 4.2 L Glucose 140 H Calcium 9.2 Troponin I < 0.015 - Rhythm Strip Rhythm Strip: Sinus Rhythm Rate: 81 Ectopy: None - EKG Initial EKG Interpretation: Sinus Rhythm, - - Normal sinus rhythm at a rate of 81 Left axis deviation Normal intervals Normal ST segments - Medical Decision Making Evaluated for presumed syncope episode and subsequent head injury. Patient has bilateral hemotympanum but has a normal neurologic exam. CT shows bilateral small parenchymal hemorrhages of the temporal areas as well as the right frontal area. No mass-effect. Patient is on any anticoagulation does receive heparin with dialysis. Blood work is otherwise unremarkable. He does have an elevated creatinine consistent with end-stage renal disease. Patient has improvement of symptoms with Zofran. He will be transferred to [facility] for further trauma/surgical evaluation do not have either of those services in our ER. Discussed with ER physician, Dr. Welch who accepts the patient. Patient is hemodynamically stable in the emergency room. ED Disposition - Plan for ED Patient: Disposition: [facility] Diagnosis: Syncope, Scalp abrasion, Cerebral parenchymal hemorrhage Referrals: Tayo Layton MD [Primary Care Provider] -
[2020-01-21 17:51] VITALS: BP 153/71; PULSE 74; RESP 14; O2SAT 100
--- NOTE | 2020-01-21 17:54 | ED.RN ---
[facility] 45 MIN ETA.
[2020-01-21 18:31] VITALS: RESP 15; O2SAT 88
[2020-01-21 18:32] VITALS: RESP 16; O2SAT 99
== END 2020-01-21 18:43 | disposition short-term general hospital (02) ==
PROVIDERS: Emergency Provider Emergency Medicine; PCP Family Medicine
DX: S06.340A Traumatic hemorrhage of right cerebrum without loss of consciousness, initial encounter (principal); R55 Syncope and collapse; I12.0 Hypertensive chronic kidney disease with stage 5 chronic kidney disease or end stage renal disease; N18.6 End stage renal disease; E11.22 Type 2 diabetes mellitus with diabetic chronic kidney disease; E78.5 Hyperlipidemia, unspecified; Z99.2 Dependence on renal dialysis; D63.1 Anemia in chronic kidney disease; W18.30XA Fall on same level, unspecified, initial encounter; Y93.01 Activity, walking, marching and hiking; Y92.481 Parking lot as the place of occurrence of the external cause; Y99.8 Other external cause status
CPT/HCPCS: 70450; 71045; 72125; 80048; 84484; 85025; 85610; 85730; 93005; 96374; 96375; 99285; A4216; J2405